=== PATIENT | male | born 1955 | race Caucasian/White ===

== ENCOUNTER 2020-04-20 17:06 | Outpatient (REF) | payer OTHER, SELFPAY ==
--- NOTE | 2020-04-20 17:11 | XR_ITS ---
EXAMINATION: XR HAND, LEFT CLINICAL INFORMATION: Pain in left hand COMPARISON: None TECHNIQUE: PA, lateral, and oblique views of the left hand. FINDINGS: The bones and soft tissues are normal aside from mild swelling of the fourth digit with compression by the patient's ring. No fracture. Alignment is anatomic. Joint spaces are maintained. No erosions or soft tissue calcifications. Vascular calcifications are present XR/XR hand LT min 3V IMPRESSION: No acute injury.
== END 2020-04-20 17:07 | disposition home or self-care (01) ==
LOC: HO.HMGCX 17:06
PROVIDERS: PCP Internal Medicine; Visit Provider Hospitalist
DX: M79.642 Pain in left hand (principal)
CPT/HCPCS: 73130

== ENCOUNTER 2021-04-14 11:49 | Inpatient (IN) | payer OTHER, SELFPAY ==
[2021-04-14] VITALS (8 sets, daily range): BP systolic 104–130; BP diastolic 71–78; PULSE 63–71; RESP 14–20; TEMP 36.4–36.8; O2SAT 92–94; BMI 29.0; BMI 31.0
--- NOTE | ~2021-04-14 | CT_ITS ---
EXAMINATION: CT HEAD WITHOUT CONTRAST CLINICAL INFORMATION: Altered mental status, hypoxia. COMPARISON: None TECHNIQUE: Contiguous axial imaging was performed from the skull base to vertex without intravenous administration of contrast. Additional 2-D coronal and sagittal reformatted images are generated on the CT workstation and uploaded to PACS. This CT examination was performed using dose optimization techniques as appropriate, variously including the following: *Automated exposure control *Adjustment of mA and/or kV according to patient size (this includes techniques or standardized protocols for targeted exams where dose is matched to indication/reason for exam; i.e. extremities or head) *Use of iterative reconstruction technique DLP: 1042 mGy-cm FINDINGS: Images are degraded by beam hardening artifact crossing the mid and posterior head likely from extensive dental work. There is no intracranial hemorrhage, hematoma, or extra-axial fluid collection. The ventricles are normal in size. There is no hydrocephalus, edema, or mass effect. The guthrie-white matter differentiation appears well preserved . There is no visible acute territorial infarct or mass lesion. The calvarium appears intact. There is no pneumocephalus or orbital emphysema. There is scattered mucosal thickening in the ethmoid air cell. Greater than thickening in the bilateral maxillary sinuses. No air-fluid levels sinuses or middle ears or mastoids. CT/CT head/brain wo con IMPRESSION: No acute intracranial abnormality.
--- NOTE | ~2021-04-14 | XR_ITS ---
EXAMINATION: XR CHEST CLINICAL INFORMATION: Covid positive. Pneumonia. COMPARISON: September 09, 2006 TECHNIQUE: AP upright view of the chest was obtained. FINDINGS: No confluent parenchymal disease identified. This small region of density seen at the left base likely related to atelectasis. No pneumothorax or pleural effusion. Heart normal size. No evidence of pulmonary edema. XR/XR chest 1V IMPRESSION: No significant acute parenchymal disease identified.
--- NOTE | ~2021-04-14 | CT_ITS ---
EXAMINATION: CT CHEST WITHOUT CONTRAST CLINICAL INFORMATION: Hypoxia COMPARISON: Chest x-ray of April 14, 2021 and September 09, 2006 TECHNIQUE: Multidetector volumetric CT imaging of the chest was done. Axial MIP volume rendering provided. Sagittal and coronal reformatted images were obtained. This CT examination was performed using dose optimization techniques as appropriate, variously including the following: *Automated exposure control *Adjustment of mA and/or kV according to patient size (this includes techniques or standardized protocols for targeted exams where dose is matched to indication/reason for exam; i.e. extremities or head) *Use of iterative reconstruction technique DLP: 1042 mGy-cm FINDINGS: LUNGS: There are bilateral regions of groundglass opacity present with a generalized peripheral pattern. There is some consolidation seen within the lower lobes bilaterally which may be related to atelectasis or pneumonia. Central airways are patent. No bronchiectasis. There is a calcified granulomas seen within the right lower lobe. MEDIASTINUM: The heart is upper limits of normal in size. Coronary artery calcification is seen. No pericardial effusion. There is prominence of the ascending thoracic aorta measuring up to 3.9 cm in diameter. No mediastinal or hilar lymphadenopathy is appreciated. PLEURA: There may be trace pleural effusions with no significant effusion identified. AXILLA: No axillary lymphadenopathy is appreciated. No internal mammary lymphadenopathy is seen. UPPER ABDOMEN: There is a small hiatal hernia present. Cholelithiasis is present without evidence of acute cholecystitis. OSSEOUS STRUCTURES: No suspicious destructive bony lesions identified. There is multilevel degenerative disc disease present. CT/CT chest wo con IMPRESSION: Diffuse groundglass opacity seen bilaterally predominantly in a peripheral pattern consistent with viral/atypical pneumonitis. Covid 19 can have this appearance. More confluent airspace disease within the lower lobes dependently bilaterally which may be related to atelectasis or pneumonitis.
--- NOTE | 2021-04-14 12:42 | ECG_ITS ---
Test Reason : WEAKNESS Blood Pressure : / mmHG Vent. Rate : 062 BPM Atrial Rate : 062 BPM P-R Int : 146 ms QRS Dur : 090 ms QT Int : 460 ms P-R-T Axes : 041 -14 -18 degrees QTc Int : 466 ms Normal sinus rhythm Normal ECG When compared with ECG of 09-SEP-2006 15:14, QT has lengthened Referred By: Rian Osullivan Electronically Signed By:SOCO PIKE MD
--- NOTE | 2021-04-14 12:42 | ED.GENADULT ---
HPI - General Adult General Chief complaint: General Medical Stated complaint: dehydrated confusion weakness Time Seen by Provider: 04/14/21 12:36 Related Data Previous Rx's Medication Instructions Recorded atorvastatin 40 mg tablet 40 mg PO DAILY #30 tab 11/10/20 hydrochlorothiazide 25 mg tablet 25 mg PO DAILY #30 tab 11/10/20 losartan 100 mg tablet 100 mg PO DAILY #30 tab 11/10/20 Allergies Allergy/AdvReac Type Severity Reaction Status Date / Time No Known Allergies Allergy Unknown Unverified 04/20/20 17:02 amlodipine AdvReac Unknown Edema Verified 04/20/20 17:02 [facility] Past Medical History Medical History (Updated 04/14/21 @ 23:54 by Macey Sanchez, SUSAN) CVA (cerebral vascular accident) HTN (hypertension) Neuropathy Surgical History (Updated 04/14/21 @ 23:54 by Macey Sanchez RN) Hx of tonsillectomy Social History Social History Household Members: Spouse Housing: House Do you presently have visiting nurse or other home services: No Patient Tobacco Use Status: Former Tobacco user Quit Date: Pt. reports smoking from [employer] until roughly 20 yrs ago Tobacco use type: Cigarette Years Smoked: Appx. 30 Smoked in Last 30 Days: No Use of substances other than those prescribed or required for medical reasons: No Currently Displaying Signs/Symptoms of Drug Intoxication Withdrawal: No Have you been hit, kicked, punched, or otherwise hurt by someone within the past year? If so, by whom?: No Do you feel safe in your current relationship?: No Is there a partner from a previous relationship who is making you feel unsafe now?: No Are you made to feel afraid or neglected: No Spiritual Healthcare Practices: Quaker- no restrictions with care Advance Directives: No Advance Directives Information Provided: Yes Do you have thoughts of harming others: None Do you have a plan to hurt others: No Plan Recently lost weight without trying: No How much weight loss: Not applicable Eating poorly because of decreased appetite: Yes Nutrition screen score: 1 Physical Exam Vital Signs: Vital Signs: Last Vital Signs Temp 98.7 F 04/15/21 08:00 Pulse 65 04/15/21 11:00 Resp 12 04/15/21 11:00 BP 105/71 04/15/21 11:00 Pulse Ox 89 L 04/15/21 11:00 BMI result Body Mass Index 29.0 Course Course Course Narrative: Patient brought to the ED for dehydration. patient recently admitted for at [facility] last week for covid, but than signed out AMA. Son concerned he has not been eating or drinking. patient is A0X3. negative nuero deficit. Rapid medical screening done. Medical Decision Making Lab Data Result diagrams: 04/15/21 05:19 04/15/21 05:19 Labs: Lab Results 04/14/21 04/14/21 04/14/21 Range/Units 14:20 14:20 14:20 WBC 8.2 (4.8-10.8) X10*3/uL RBC 4.77 (4.60-5.80) X10*6/uL Hgb 13.4 L (14.0-18.0) g/dl Hct 39.2 L (42.0-52.0) % MCV 82.2 (80.0-98.0) fL MCH 28.1 (27.0-33.0) pg MCHC 34.2 (31.0-36.0) g/dl RDW 11.0 (11.0-16.0) % Plt Count 92 L (160-400) X10*3/uL MPV 11.8 (9.4-12.4) fL Immature Gran % (Auto) 0.9 H (0.0-0.4) % Neut % (Auto) 91.6 H (45-73) % Lymph % (Auto) 4.1 L (20-40) % [place] % (Auto) 3.4 (2-11) % Eos % (Auto) 0.0 (0-4) % Baso % (Auto) 0.0 (0-2) % Lymph # (Auto) 0.3 L (1.2-4.9) X10*3/uL [place] # (Auto) 0.3 (0.1-1.2) X10*3/uL Eos # (Auto) 0.0 (0.0-0.4) X10*3/uL Baso # (Auto) 0.0 (0.0-0.2) X10*3/uL Abs Immat Gran (auto) 0.07 H (0.00-0.03) X10*3/uL Absolute Neuts (auto) 7.5 (2.0-8.3) x10*3/uL Absolute Nucleated RBC 0.000 (0.0-0.012) X10*3/uL Nucleated RBC % (auto) 0.0 (0.0-0.2) /100WBC Smear Tech's Comments VERIFIED Sodium 106 L* (135-145) mmol/L Potassium 3.5 (3.3-5.1) mmol/L Chloride 74 L (96-108) mmol/L Carbon Dioxide 23 (22-29) mmol/L Anion Gap 12 (12-20) BUN 13 (9-16) mg/dL Creatinine 0.74 (0.5-1.4) mg/dL Estim Creat Clear Calc 102.2 Estimated GFR > 60 Random Glucose 180 H (60-115) mg/dL Calcium 8.0 L (8.4-10.2) mg/dL Magnesium 1.8 (1.6-2.6) mg/dL Ferritin 971 H (20-250) ng/mL Total Bilirubin 1.4 H (0.0-1.0) mg/dL Direct Bilirubin 0.6 H (0.0-0.5) mg/dL AST 42 H (5-37) U/L ALT 32 (0-40) U/L Alkaline Phosphatase 78 (39-117) U/L Lactate Dehydrogenase 304 H (118-273) U/L Troponin I High Sens (<3.5-35.0) ng/L Total Protein 5.9 L (6.5-8.0) g/dL Albumin 3.2 L (3.5-5.0) g/dL Procalcitonin 0.05 ng/mL Urine Color Urine Appearance Urine pH (5.0-8.0) Ur Specific [place] (1.005-1.025) Urine Protein (NEG-TRACE) MG/DL Urine Glucose (UA) (NEG) MG/DL Urine Ketones (NEG) MG/DL Urine Blood (NEG) Urine Nitrite (NEG) Ur Leukocyte Esterase (NEG) Urine RBC (0) /HPF Urine WBC (0-4) /HPF Ur Squamous Epith Cells /LPF Urine Bacteria /LPF Urine Osmolality (373-1093) mosm/kg Ur Random Sodium mmol/L Ur Random Chloride mmol/L 04/14/21 04/14/21 04/14/21 Range/Units 14:20 16:21 16:22 WBC (4.8-10.8) X10*3/uL RBC (4.60-5.80) X10*6/uL Hgb (14.0-18.0) g/dl Hct (42.0-52.0) % MCV (80.0-98.0) fL MCH (27.0-33.0) pg MCHC (31.0-36.0) g/dl RDW (11.0-16.0) % Plt Count (160-400) X10*3/uL MPV (9.4-12.4) fL Immature Gran % (Auto) (0.0-0.4) % Neut % (Auto) (45-73) % Lymph % (Auto) (20-40) % [place] % (Auto) (2-11) % Eos % (Auto) (0-4) % Baso % (Auto) (0-2) % Lymph # (Auto) (1.2-4.9) X10*3/uL [place] # (Auto) (0.1-1.2) X10*3/uL Eos # (Auto) (0.0-0.4) X10*3/uL Baso # (Auto) (0.0-0.2) X10*3/uL Abs Immat Gran (auto) (0.00-0.03) X10*3/uL Absolute Neuts (auto) (2.0-8.3) x10*3/uL Absolute Nucleated RBC (0.0-0.012) X10*3/uL Nucleated RBC % (auto) (0.0-0.2) /100WBC Smear Tech's Comments Sodium (135-145) mmol/L Potassium (3.3-5.1) mmol/L Chloride (96-108) mmol/L Carbon Dioxide (22-29) mmol/L Anion Gap (12-20) BUN (9-16) mg/dL Creatinine (0.5-1.4) mg/dL Estim Creat Clear Calc Estimated GFR Random Glucose (60-115) mg/dL Calcium (8.4-10.2) mg/dL Magnesium (1.6-2.6) mg/dL Ferritin (20-250) ng/mL Total Bilirubin (0.0-1.0) mg/dL Direct Bilirubin (0.0-0.5) mg/dL AST (5-37) U/L ALT (0-40) U/L Alkaline Phosphatase (39-117) U/L Lactate Dehydrogenase (118-273) U/L Troponin I High Sens 7.2 (<3.5-35.0) ng/L Total Protein (6.5-8.0) g/dL Albumin (3.5-5.0) g/dL Procalcitonin ng/mL Urine Color YELLOW Urine Appearance CLEAR Urine pH 6.0 (5.0-8.0) Ur Specific [place] 1.025 (1.005-1.025) Urine Protein 2+ H (NEG-TRACE) MG/DL Urine Glucose (UA) NEG (NEG) MG/DL Urine Ketones 5 (NEG) MG/DL Urine Blood 1+ H (NEG) Urine Nitrite NEG (NEG) Ur Leukocyte Esterase NEG (NEG) Urine RBC 1-4 (0) /HPF Urine WBC 0 (0-4) /HPF Ur Squamous Epith Cells NONE /LPF Urine Bacteria 1+ /LPF Urine Osmolality 788 (373-1093) mosm/kg Ur Random Sodium mmol/L Ur Random Chloride mmol/L 04/14/21 Range/Units 16:22 WBC (4.8-10.8) X10*3/uL RBC (4.60-5.80) X10*6/uL Hgb (14.0-18.0) g/dl Hct (42.0-52.0) % MCV (80.0-98.0) fL MCH (27.0-33.0) pg MCHC (31.0-36.0) g/dl RDW (11.0-16.0) % Plt Count (160-400) X10*3/uL MPV (9.4-12.4) fL Immature Gran % (Auto) (0.0-0.4) % Neut % (Auto) (45-73) % Lymph % (Auto) (20-40) % [place] % (Auto) (2-11) % Eos % (Auto) (0-4) % Baso % (Auto) (0-2) % Lymph # (Auto) (1.2-4.9) X10*3/uL [place] # (Auto) (0.1-1.2) X10*3/uL Eos # (Auto) (0.0-0.4) X10*3/uL Baso # (Auto) (0.0-0.2) X10*3/uL Abs Immat Gran (auto) (0.00-0.03) X10*3/uL Absolute Neuts (auto) (2.0-8.3) x10*3/uL Absolute Nucleated RBC (0.0-0.012) X10*3/uL Nucleated RBC % (auto) (0.0-0.2) /100WBC Smear Tech's Comments Sodium (135-145) mmol/L Potassium (3.3-5.1) mmol/L Chloride (96-108) mmol/L Carbon Dioxide (22-29) mmol/L Anion Gap (12-20) BUN (9-16) mg/dL Creatinine (0.5-1.4) mg/dL Estim Creat Clear Calc Estimated GFR Random Glucose (60-115) mg/dL Calcium (8.4-10.2) mg/dL Magnesium (1.6-2.6) mg/dL Ferritin (20-250) ng/mL Total Bilirubin (0.0-1.0) mg/dL Direct Bilirubin (0.0-0.5) mg/dL AST (5-37) U/L ALT (0-40) U/L Alkaline Phosphatase (39-117) U/L Lactate Dehydrogenase (118-273) U/L Troponin I High Sens (<3.5-35.0) ng/L Total Protein (6.5-8.0) g/dL Albumin (3.5-5.0) g/dL Procalcitonin ng/mL Urine Color Urine Appearance Urine pH (5.0-8.0) Ur Specific [place] (1.005-1.025) Urine Protein (NEG-TRACE) MG/DL Urine Glucose (UA) (NEG) MG/DL Urine Ketones (NEG) MG/DL Urine Blood (NEG) Urine Nitrite (NEG) Ur Leukocyte Esterase (NEG) Urine RBC (0) /HPF Urine WBC (0-4) /HPF Ur Squamous Epith Cells /LPF Urine Bacteria /LPF Urine Osmolality (373-1093) mosm/kg Ur Random Sodium < 20.0 mmol/L Ur Random Chloride 39.0 mmol/L Discharge Plan Discharge Clinical Impression: Acute hyponatremia Patient Disposition: Admitted As Inpatient Interventions: Admission Worksheet (ED) Last Done: 04/14/21 22:03 Discharge Date/Time: 04/14/21 22:03
[2021-04-14 14:45] LABS: Mean Platelet Volume 11.8 fL (9.4-12.4); PLT CLUMP 1
[2021-04-14 14:47] LABS: Hematocrit 39.2 % (42.0-52.0); Imm Gran Abs Auto 0.07 X10*3/uL (0.00-0.03); Imm Gran Pct Auto 0.9 % (0.0-0.4); Lymphocytes Absolute Auto 0.3 X10*3/uL (1.2-4.9); Lymphocytes Percent Auto 4.1 % (20-40); MANUAL DIFF FLAG SCAN; Mean Corpuscular Volume 82.2 fL (80.0-98.0); Monocytes Absolute Auto 0.3 X10*3/uL (0.1-1.2); Monocytes Percent Auto 3.4 % (2-11); Neutrophils Absolute Auto 7.5 x10*3/uL (2.0-8.3); Neutrophils Percent Auto 91.6 % (45-73); Red Blood Count 4.77 X10*6/uL (4.60-5.80); SCAN SMEAR FLAG 1
[2021-04-14 14:48] LABS: Troponin-I High Sensitivity 7.2 ng/L (<3.5-35.0)
[2021-04-14 14:55] LABS: Alanine Aminotransferase 32 U/L (0-40); Albumin Level 3.2 g/dL (3.5-5.0); Alkaline Phosphatase 78 U/L (39-117); Anion Gap 12 (12-20); Aspartate Amino Transferase 42 U/L (5-37); Bilirubin Direct 0.6 mg/dL (0.0-0.5); Bilirubin Total 1.4 mg/dL (0.0-1.0); Blood Urea Nitrogen 13 mg/dL (9-16); Carbon Dioxide 23 mmol/L (22-29); Chloride 74 mmol/L (96-108); Creatinine Clr Calc Pharmacy 102.2; Estimated Glomerular Filt Rate > 60; Glucose Random 180 mg/dL (60-115); Lactate Dehydrogenase 304 U/L (118-273); Magnesium 1.8 mg/dL (1.6-2.6); Potassium 3.5 mmol/L (3.3-5.1); Sodium 106 mmol/L (135-145); Total Protein 5.9 g/dL (6.5-8.0)
[2021-04-14 15:01] LABS: Hemoglobin 13.4 g/dl (14.0-18.0); White Blood Count 8.2 X10*3/uL (4.8-10.8)
[2021-04-14 15:02] LABS: Mean Corpuscular Hemoglobin 28.1 pg (27.0-33.0); Procalcitonin 0.05 ng/mL
[2021-04-14 15:03] LABS: Ferritin 971 ng/mL (20-250); Mean Corpuscular HGB Conc 34.2 g/dl (31.0-36.0); Platelet Count 92 X10*3/uL (160-400)
[2021-04-14 15:09] LABS: SLIDE REVIEW VERIFIED
--- NOTE | 2021-04-14 15:35 | ED_ITS ---
HPI - General Adult General Chief complaint: General Medical Stated complaint: dehydrated confusion weakness Time Seen by Provider: 04/14/21 12:36 Source: patient Mode of arrival: ambulatory Limitations: no limitations History of Present Illness HPI narrative: 66-year-old male came in for evaluation of generalized weakness and failure to thrive for the past 2 weeks. This is a 66-year-old male has a history of ischemic stroke 2017 with no significant neurological deficit, patient recently was admitted to [facility] for positive COVID infection and patient had periods of spacing out witnessed by his (patient is a limited historian who will try to request records from [facility] to get further history), patient stated for the last 2 weeks with decreased appetite and oral intake, reportedly patient has been urinating normally. Patient otherwise has no headache, no neck pain, no blurry vision, no chest pain, no abdominal pain, no gaining weight or losing weight, no edema or swelling. Patient found to be severely hyponatremic hypochloremic on random blood workup. Related Data Previous Rx's Medication Instructions Recorded atorvastatin 40 mg tablet 40 mg PO DAILY #30 tab 11/10/20 hydrochlorothiazide 25 mg tablet 25 mg PO DAILY #30 tab 11/10/20 losartan 100 mg tablet 100 mg PO DAILY #30 tab 11/10/20 Allergies Allergy/AdvReac Type Severity Reaction Status Date / Time No Known Allergies Allergy Unknown Unverified 04/20/20 17:02 amlodipine AdvReac Unknown Edema Verified 04/20/20 17:02 Review of Systems Review of Systems: All other systems are reviewed and are negative Constitutional: Reports as per HPI and Reports no additional constitutional complaints Eyes: Reports as per HPI and Reports no additional eye complaints Reports system reviewed and no additional complaints, except as documented Cardiovascular: Reports as per HPI and Reports no additional cardiovascular complaints Respiratory: Reports as per HPI and Reports no additional respiratory complaints Gastrointestinal: Reports as per HPI and Reports no additional gastrointestinal complaints Genitourinary: Reports no additional female genitourinary complaints Musculoskeletal: Reports no additional musculoskeletal complaints Skin/Breast: Reports system reviewed and no additional complaints, except as docu Psychiatric: Reports no additional psychiatric complaints Endocrine: Reports no additional endocrine complaints Hematologic/Lymphatic: Reports no additional hematologic/lymphatic complaints Allergic/Immunologic: Reports no additional allergic/immunologic complaints Reports system reviewed and no additional complaints, except as documented and Reports Abnormal speech present [facility] Social History Social History Advance Directives: No Advance Directives Information Provided: Yes Physical Exam Vital Signs: Vital Signs: Last Vital Signs Temp 97.8 F 04/14/21 12:37 Pulse 70 04/14/21 15:32 Resp 18 04/14/21 12:37 BP 126/72 04/14/21 15:32 Pulse Ox 93 04/14/21 12:37 BMI result Body Mass Index 29.0 Vital signs have been reviewed as appeared to be correct. Blood pressure normal. Heart rate normal. Respiration rate normal. Temperature normal. Oxygen saturation normal. Appearance: Alert. Oriented X3. No acute distress. Head: Normal external exam. Normocephalic. Atraumatic. No [place] signs noted. No raccoon eyes noted Eyes: PERRLA. EOMI. Conjunctiva and sclera normal. Eyelids normal. ENT: TM's Normal. Pharynx normal. Uvula midline. Moist mucous membranes. No trismus noted. No drooling noted. No muffled voice noted. Neck: Normal inspection. Neck supple. FROM. No adenopathy. Thyroid Normal. No meningeal signs. No neck mass noted. CVS: Normal heart rate and rhythm. Heart sound normal. No murmurs noted. Pulses normal throughout. Respiratory: No respiratory distress. Painless inspiration. Breath sounds normal. No wheezes/rales/rhonchi noted. Chest nontender. No accessory muscle usage noted or decreased air movement noted. Abdomen: Soft and nontender. Bowel sounds normal in all 4 quadrants. No distention noted. No organomegaly noted. No visible injury noted. Back: No CVA tenderness. Full range of motion noted. Skin: Skin warm and dry. Normal skin color. Normal skin turgor. No rashes/ lesions/lacerations noted. Extremities: No lower extremity edema. Extremities exhibit normal range of motion. Extremities nontender. Neuro: Oriented X 3. Cranial nerve exam: II-XII are grossly intact No motor deficit. No sensory deficit. Reflexes normal. Course Course Course Narrative: Assessment and plan. 66-year-old male came in with severe hyponatremia/hypochloremia patient do not appear hypo or hypervolemic. Patient has a recent admission to [facility] was still awaiting for the records and patient could not provide enough history. No neurological symptoms. Reevaluation(s) Reevaluation #1: Case discussed with Dr. Tres Frye from Nephrology Service, recommendation is to start the patient on hypertonic 3% saline, start at 10 cc/hour with 2 hourly sodium check, serum sodium should not exceed more than 112 by tomorrow morning, if the patient show rapid correction DC hypertonic saline instantly. Time: 16:17 Reevaluation #2: Case discussed with Dr. Tovar, the business analyst ecommerce plan was discussed with Dr. Tovar and accepted the patient to ICU. Still awaiting for records from [facility]. Time: 16:18 Medical Decision Making Lab Data Lab results reviewed: Yes I reviewed the patient's lab results. Result diagrams: 04/14/21 14:20 04/14/21 14:20 Labs: Lab Results 04/14/21 04/14/21 04/14/21 Range/Units 14:20 14:20 14:20 WBC 8.2 (4.8-10.8) X10*3/uL RBC 4.77 (4.60-5.80) X10*6/uL Hgb 13.4 L (14.0-18.0) g/dl Hct 39.2 L (42.0-52.0) % MCV 82.2 (80.0-98.0) fL MCH 28.1 (27.0-33.0) pg MCHC 34.2 (31.0-36.0) g/dl RDW 11.0 (11.0-16.0) % Plt Count 92 L (160-400) X10*3/uL MPV 11.8 (9.4-12.4) fL Immature Gran % (Auto) 0.9 H (0.0-0.4) % Neut % (Auto) 91.6 H (45-73) % Lymph % (Auto) 4.1 L (20-40) % [place] % (Auto) 3.4 (2-11) % Eos % (Auto) 0.0 (0-4) % Baso % (Auto) 0.0 (0-2) % Lymph # (Auto) 0.3 L (1.2-4.9) X10*3/uL [place] # (Auto) 0.3 (0.1-1.2) X10*3/uL Eos # (Auto) 0.0 (0.0-0.4) X10*3/uL Baso # (Auto) 0.0 (0.0-0.2) X10*3/uL Abs Immat Gran (auto) 0.07 H (0.00-0.03) X10*3/uL Absolute Neuts (auto) 7.5 (2.0-8.3) x10*3/uL Absolute Nucleated RBC 0.000 (0.0-0.012) X10*3/uL Nucleated RBC % (auto) 0.0 (0.0-0.2) /100WBC Smear Tech's Comments VERIFIED Sodium 106 L* (135-145) mmol/L Potassium 3.5 (3.3-5.1) mmol/L Chloride 74 L (96-108) mmol/L Carbon Dioxide 23 (22-29) mmol/L Anion Gap 12 (12-20) BUN 13 (9-16) mg/dL Creatinine 0.74 (0.5-1.4) mg/dL Estim Creat Clear Calc 102.2 Estimated GFR > 60 Random Glucose 180 H (60-115) mg/dL Calcium 8.0 L (8.4-10.2) mg/dL Magnesium 1.8 (1.6-2.6) mg/dL Ferritin 971 H (20-250) ng/mL Total Bilirubin 1.4 H (0.0-1.0) mg/dL Direct Bilirubin 0.6 H (0.0-0.5) mg/dL AST 42 H (5-37) U/L ALT 32 (0-40) U/L Alkaline Phosphatase 78 (39-117) U/L Lactate Dehydrogenase 304 H (118-273) U/L Troponin I High Sens (<3.5-35.0) ng/L Total Protein 5.9 L (6.5-8.0) g/dL Albumin 3.2 L (3.5-5.0) g/dL Procalcitonin 0.05 ng/mL 04/14/21 Range/Units 14:20 WBC (4.8-10.8) X10*3/uL RBC (4.60-5.80) X10*6/uL Hgb (14.0-18.0) g/dl Hct (42.0-52.0) % MCV (80.0-98.0) fL MCH (27.0-33.0) pg MCHC (31.0-36.0) g/dl RDW (11.0-16.0) % Plt Count (160-400) X10*3/uL MPV (9.4-12.4) fL Immature Gran % (Auto) (0.0-0.4) % Neut % (Auto) (45-73) % Lymph % (Auto) (20-40) % [place] % (Auto) (2-11) % Eos % (Auto) (0-4) % Baso % (Auto) (0-2) % Lymph # (Auto) (1.2-4.9) X10*3/uL [place] # (Auto) (0.1-1.2) X10*3/uL Eos # (Auto) (0.0-0.4) X10*3/uL Baso # (Auto) (0.0-0.2) X10*3/uL Abs Immat Gran (auto) (0.00-0.03) X10*3/uL Absolute Neuts (auto) (2.0-8.3) x10*3/uL Absolute Nucleated RBC (0.0-0.012) X10*3/uL Nucleated RBC % (auto) (0.0-0.2) /100WBC Smear Tech's Comments Sodium (135-145) mmol/L Potassium (3.3-5.1) mmol/L Chloride (96-108) mmol/L Carbon Dioxide (22-29) mmol/L Anion Gap (12-20) BUN (9-16) mg/dL Creatinine (0.5-1.4) mg/dL Estim Creat Clear Calc Estimated GFR Random Glucose (60-115) mg/dL Calcium (8.4-10.2) mg/dL Magnesium (1.6-2.6) mg/dL Ferritin (20-250) ng/mL Total Bilirubin (0.0-1.0) mg/dL Direct Bilirubin (0.0-0.5) mg/dL AST (5-37) U/L ALT (0-40) U/L Alkaline Phosphatase (39-117) U/L Lactate Dehydrogenase (118-273) U/L Troponin I High Sens 7.2 (<3.5-35.0) ng/L Total Protein (6.5-8.0) g/dL Albumin (3.5-5.0) g/dL Procalcitonin ng/mL Imaging Data Chest x-ray: Attestation: I personally reviewed and interpreted this imaging study as follows: Radiologist's impression: No significant acute parenchymal disease identified. ECG Data Attestation: I personally reviewed and interpreted this ECG as follows: Interpretation: Normal sinus rhythm at 62 beats per minutes, normal intervals, no ST-T changes. Critical Care Time Critical Care Time Critical Care Time: Yes Total Critical Care Time: 60 Attestation: I spent 60 minutes providing critical care service to the patient, this including time spent at the bedside to evaluate the patient, reassess the patient, monitoring vital signs, review labs, and radiographic studies, counseling the patient/family, discussing the case with consultants, disposition the patient. Discharge Plan Discharge Clinical Impression: Acute hyponatremia Patient Disposition: Admitted As Inpatient Prescriptions: No Action atorvastatin 40 mg tablet 40 mg PO DAILY Qty: 30 RF: 0 hydrochlorothiazide 25 mg tablet 25 mg PO DAILY Qty: 30 RF: 0 losartan 100 mg tablet 100 mg PO DAILY Qty: 30 RF: 0
--- NOTE | 2021-04-14 15:38 | PC.NURSE ---
call out to renal, dr smith [address] collections officer
--- NOTE | 2021-04-14 16:20 | PC.NURSE ---
THIS RN SPOKE W/PTS SON WHO IS HEALTH CARE [employer]OXY AND VEYR CONCERNED/UPSET RE: NOT BEING ABLE TO BE AT DADS BEDSIDE D/T COVID +STATUS. PTS SON HAS REQUESTED BEFORE ANY MEDS ARE GIVEN TO HIS FTAHER IT IS DISCUSSED W/HIM FIRST. THIS WILL BE CONVEYED IN NURSE TO NURSE REPORT BUT I DID ALSO ENCOURAGE JOSE F TO [place];; AND CHECK IN WITH THE NURSING STAFF REGULARLY
[2021-04-14 16:39] LABS: Appearance Urine CLEAR; Color Urine YELLOW; Glucose Urine UA NEG (NEG); Leukocyte Esterase Urine NEG (NEG); Nitrite Urine NEG (NEG); Specific Gravity - Urine 1.025 (1.005-1.025); UACC Culture Trigger NO; Urine Blood 1+ (NEG); Urine Ketones 5 MG/DL (NEG); Urine Protein 2+ MG/DL (NEG-TRACE)
[2021-04-14 16:50] LABS: Sodium Urine Random < 20.0 mmol/L
[2021-04-14 16:56] LABS: Bacteria Urine 1+ /LPF; WBC Urine 0 /HPF (0-4)
[2021-04-14 17:00] LABS: Osmolality Urine 788 mosm/kg (373-1093)
--- NOTE | 2021-04-14 17:29 | PM.CCHP ---
History of Present Illness Date of Service: 04/14/21 Attending physician on admission: Vashti Tovar Chief Complaint: Altered mental status 66-year-old hypertensive on hydrochlorothiazide and losartan who had a diagnosis of COVID-19 made 5 days ago but apparently symptomatic for approximately 2 weeks according to his son was briefly admitted but signed out of [facility] and and comes in now because of this altered mental status superimposed on a background of a per and old CVA that did not leave him with any residual and apparently he is a healthy walker 5 miles per day with no residual deficit but the because of altered mental status son brought him in and we noted a sodium of 106 with no apparent or at least witnessed loss of consciousness fall head trauma seizure activity etc. At this point he is approximately 2 weeks out from the initial symptom of of COVID and 5 days out from the positive PCR test and has no complaints of dyspnea cough fever yet at this point Review of Systems Review of Systems: Yes all other systems are reviewed and are negative PMFSH Past Medical History Medical History (Updated 04/15/21 @ 16:25 by Vashti Tovar MD) CVA (cerebral vascular accident) HTN (hypertension) Hypertensive arteriosclerotic cardiovascular disease Neuropathy Surgical History Surgical History Hx of tonsillectomy Social History Social History Household Members: Spouse Housing: House Do you presently have visiting nurse or other home services: No Patient Tobacco Use Status: Former Tobacco user Quit Date: Pt. reports smoking from [employer] school until roughly 20 yrs ago Tobacco use type: Cigarette Years Smoked: Appx. 30 Smoked in Last 30 Days: No Use of substances other than those prescribed or required for medical reasons: No Currently Displaying Signs/Symptoms of Drug Intoxication Withdrawal: No Have you been hit, kicked, punched, or otherwise hurt by someone within the past year? If so, by whom?: No Do you feel safe in your current relationship?: No Is there a partner from a previous relationship who is making you feel unsafe now?: No Are you made to feel afraid or neglected: No Spiritual Healthcare Practices: [facility]- no restrictions with care Advance Directives: No Advance Directives Information Provided: Yes Do you have thoughts of harming others: None Do you have a plan to hurt others: No Plan Recently lost weight without trying: No How much weight loss: Not applicable Eating poorly because of decreased appetite: Yes Nutrition screen score: 1 service: No Meds Allergies Allergy/AdvReac Type Severity Reaction Status Date / Time No Known Allergies Allergy Unknown Unverified 04/20/20 17:02 amlodipine AdvReac Unknown Edema Verified 04/20/20 17:02 Active Medications: Current Medications Sodium Chloride 30 ml/ IV (Miscellaneous Supplies) 30 mls @ 10 mls/hr IV ONCE ONE Stop: 04/14/21 19:14 Dextrose/Sodium Chloride (D5ns) 1,000 mls @ 100 mls/hr IVCONT .Q10H EFREN Sodium Chloride (0.9 % Sodium Chloride Flush 3 Ml Syringe) 3 ml IVFLUSH QSHIFT EFREN Physical Exam Vital Signs: Vital Signs: Last Vital Signs Temp 97.8 F 04/14/21 12:37 Pulse 70 04/14/21 15:32 Resp 18 04/14/21 12:37 BP 126/72 04/14/21 15:32 Pulse Ox 93 04/14/21 12:37 BMI result Body Mass Index 29.0 Not awake and conversational but clearly this cloudiness Nonfocal neurologically and oxygen saturation on room air 92% with no respiratory effort and no adventitious sounds Cardiac exam but with bedside echo shows globally normal systolic wall motion of the left ventricle normal right ventricle and no primary valve or pericardial disease Skin intact despite some peripheral edema but neck veins are flat but carotid upstrokes are adequate and inferior vena caval diameter is small implying that there is relative hypovolemia so at this point we await the urine sodium as well as the BNP and the urine osmolality to determine etiology as to whether not this is a hypo volemic hyponatremia and hypo osmolal and whether not the fold lies with combination of the hydrochlorothiazide and very poor p.o. intake these last few days whether this is an inappropriate ADH simply Results Labs CBC and Chem 7: 04/15/21 05:19 04/15/21 10:47 Labs: Laboratory Results - last 24 hr 04/14/21 04/14/21 04/14/21 14:20 14:20 14:20 MCV 82.2 MCH 28.1 MCHC 34.2 RDW 11.0 Plt Count 92 L MPV 11.8 Immature Gran % (Auto) 0.9 H Neut % (Auto) 91.6 H Lymph % (Auto) 4.1 L [place] % (Auto) 3.4 Eos % (Auto) 0.0 Baso % (Auto) 0.0 Lymph # (Auto) 0.3 L [place] # (Auto) 0.3 Eos # (Auto) 0.0 Baso # (Auto) 0.0 Abs Immat Gran (auto) 0.07 H Absolute Neuts (auto) 7.5 Absolute Nucleated RBC 0.000 Nucleated RBC % (auto) 0.0 Smear Tech's Comments VERIFIED Anion Gap 12 Estim Creat Clear Calc 102.2 Estimated GFR > 60 Random Glucose 180 H Calcium 8.0 L Magnesium 1.8 Ferritin 971 H Total Bilirubin 1.4 H Direct Bilirubin 0.6 H AST 42 H ALT 32 Alkaline Phosphatase 78 Lactate Dehydrogenase 304 H Troponin I High Sens Total Protein 5.9 L Albumin 3.2 L Procalcitonin 0.05 Urine Color Urine Appearance Urine pH Ur Specific [place] Urine Protein Urine Glucose (UA) Urine Ketones Urine Blood Urine Nitrite Ur Leukocyte Esterase Urine RBC Urine WBC Ur Squamous Epith Cells Urine Bacteria Urine Osmolality Ur Random Sodium Ur Random Chloride 04/14/21 04/14/21 04/14/21 14:20 16:21 16:22 MCV MCH MCHC RDW Plt Count MPV Immature Gran % (Auto) Neut % (Auto) Lymph % (Auto) [place] % (Auto) Eos % (Auto) Baso % (Auto) Lymph # (Auto) [place] # (Auto) Eos # (Auto) Baso # (Auto) Abs Immat Gran (auto) Absolute Neuts (auto) Absolute Nucleated RBC Nucleated RBC % (auto) Smear Tech's Comments Anion Gap Estim Creat Clear Calc Estimated GFR Random Glucose Calcium Magnesium Ferritin Total Bilirubin Direct Bilirubin AST ALT Alkaline Phosphatase Lactate Dehydrogenase Troponin I High Sens 7.2 Total Protein Albumin Procalcitonin Urine Color YELLOW Urine Appearance CLEAR Urine pH 6.0 Ur Specific [place] 1.025 Urine Protein 2+ H Urine Glucose (UA) NEG Urine Ketones 5 Urine Blood 1+ H Urine Nitrite NEG Ur Leukocyte Esterase NEG Urine RBC 1-4 Urine WBC 0 Ur Squamous Epith Cells NONE Urine Bacteria 1+ Urine Osmolality 788 Ur Random Sodium Ur Random Chloride 04/14/21 16:22 MCV MCH MCHC RDW Plt Count MPV Immature Gran % (Auto) Neut % (Auto) Lymph % (Auto) [place] % (Auto) Eos % (Auto) Baso % (Auto) Lymph # (Auto) [place] # (Auto) Eos # (Auto) Baso # (Auto) Abs Immat Gran (auto) Absolute Neuts (auto) Absolute Nucleated RBC Nucleated RBC % (auto) Smear Tech's Comments Anion Gap Estim Creat Clear Calc Estimated GFR Random Glucose Calcium Magnesium Ferritin Total Bilirubin Direct Bilirubin AST ALT Alkaline Phosphatase Lactate Dehydrogenase Troponin I High Sens Total Protein Albumin Procalcitonin Urine Color Urine Appearance Urine pH Ur Specific [place] Urine Protein Urine Glucose (UA) Urine Ketones Urine Blood Urine Nitrite Ur Leukocyte Esterase Urine RBC Urine WBC Ur Squamous Epith Cells Urine Bacteria Urine Osmolality Ur Random Sodium < 20.0 Ur Random Chloride 39.0 Imaging Radiologist's Impressions: Impressions Chest X-Ray 04/14/21 13:33 IMPRESSION: No significant acute parenchymal disease identified. Assessment and Plan (1) Acute hyponatremia: Status: Acute (2) Acute metabolic encephalopathy: Status: Acute (3) COVID-19 determined by clinical diagnostic criteria: Status: Acute (4) Hypertensive arteriosclerotic cardiovascular disease: Status: Acute Will admit to the ICU and give him a total of 30 cc of 3% saline over 3 hours and then switch over to normal saline at 100 cc/hour monitoring every 2 hours the serum sodium and potassium and await the urine studies in a for final definition but just tract that were in the right direction and follow his oxygen saturation and if that becomes an issue with any may need a chest CT scan and increasing oxygen support and then potentially at this point in time from his initial symptom we might yet be able to give him Decadron as well as baricitinib
[2021-04-14 17:56] LABS: Adenovirus PCR Not Detected (Not Detect.); Bordetella parapertussis PCR Not Detected (Not Detect.); Bordetella pertussis PCR Not Detected (Not Detect.); Chlamydia pneumoniae PCR Not Detected (Not Detect.); Coronavirus 229E PCR Not Detected (Not Detect.); Coronavirus HKU1 PCR Not Detected (Not Detect.); Coronavirus NL63 PCR Not Detected (Not Detect.); Coronavirus OC43 PCR Not Detected (Not Detect.); Human metapneumovirus PCR Not Detected (Not Detect.); Influenza A PCR Not Detected (Not Detect.); Influenza B PCR Not Detected (Not Detect.); Mycoplasma pneumoniae PCR Not Detected (Not Detect.); Parainfluenza 1 PCR Not Detected (Not Detect.); Parainfluenza 2 PCR Not Detected (Not Detect.); Parainfluenza 3 PCR Not Detected (Not Detect.); Parainfluenza 4 PCR Not Detected (Not Detect.); RSV PCR Not Detected (Not Detect.); Rhino/Enterovirus PCR Not Detected (Not Detect.)
[2021-04-14 18:11] LABS: COVID-19 Test Positive (Negative)
[2021-04-14 18:17] LABS: B Type Natriuretic Peptide 87 pg/mL (<100)
[2021-04-14 18:19] LABS: C Reactive Protein 1.28 mg/dL (< or = 0.50); Phosphorus 2.3 mg/dL (2.7-4.5)
[2021-04-14 18:23] LABS: D Dimer High Sensitivity 282 NG/ML
[2021-04-14 18:32] LABS: TSH reflex Free T4 0.59 uIU/mL (0.32-4.0)
[2021-04-14] MEDS: Dextrose 5 % and 0.9 % NaCl 1,000 ML 100 ML IVCONT (19:56)
[2021-04-14 20:47] LABS: Anion Gap 11 (12-20); Blood Urea Nitrogen 12 mg/dL (9-16); Calcium 7.7 mg/dL (8.4-10.2); Carbon Dioxide 24 mmol/L (22-29); Chloride 76 mmol/L (96-108); Creatinine Clr Calc Pharmacy 109.7; Estimated Glomerular Filt Rate > 60; Glucose Random 164 mg/dL (60-115); Potassium 3.2 mmol/L (3.3-5.1); Sodium 108 mmol/L (135-145)
[2021-04-14] MEDS: 0.9 % Sodium Chloride 1,000 ML 100 ML IVCONT (22:47)
[2021-04-14 22:50] LABS: Anion Gap 10 (12-20); Blood Urea Nitrogen 12 mg/dL (9-16); Calcium 7.7 mg/dL (8.4-10.2); Carbon Dioxide 25 mmol/L (22-29); Chloride 77 mmol/L (96-108); Creatinine Clr Calc Pharmacy 116.5; Estimated Glomerular Filt Rate > 60; Glucose Fasting 129 mg/dL (60-99); Potassium 3.3 mmol/L (3.3-5.1); Sodium 109 mmol/L (135-145)
[2021-04-14] MEDS: Potassium Phosphate 30 MMOL in 0.9 % Sodium Chloride 500 ML 85 MMOL IV (23:04)
[2021-04-14] MEDS: Famotidine/PF 20 MG/2 ML VIAL IVPUSH (23:04)
[2021-04-15] VITALS (27 sets, daily range): BP systolic 91–153; BP diastolic 53–76; PULSE 51–100; RESP 12–40; TEMP 36–37.1; O2SAT 88–94; BMI 31.0
[2021-04-15 01:14] LABS: Anion Gap 11 (12-20); Blood Urea Nitrogen 12 mg/dL (9-16); Calcium 7.6 mg/dL (8.4-10.2); Carbon Dioxide 25 mmol/L (22-29); Chloride 77 mmol/L (96-108); Creatinine Clr Calc Pharmacy 118.3; Estimated Glomerular Filt Rate > 60; Glucose Fasting 117 mg/dL (60-99); Potassium 3.3 mmol/L (3.3-5.1); Sodium 110 mmol/L (135-145)
[2021-04-15 02:59] LABS: Anion Gap 11 (12-20); Blood Urea Nitrogen 11 mg/dL (9-16); Calcium 7.4 mg/dL (8.4-10.2); Carbon Dioxide 24 mmol/L (22-29); Chloride 79 mmol/L (96-108); Creatinine Clr Calc Pharmacy 120.1; Estimated Glomerular Filt Rate > 60; Glucose Fasting 103 mg/dL (60-99); Potassium 3.4 mmol/L (3.3-5.1); Sodium 111 mmol/L (135-145)
[2021-04-15] MEDS: Metoclopramide HCl 10 MG/2 ML VIAL 5 MG IVPUSH (04:08)
[2021-04-15 05:37] LABS: PLT CLUMP 1; SCAN SMEAR FLAG 1
[2021-04-15 05:39] LABS: Basophils Percent Auto 0.1 % (0-2); Hematocrit 34.6 % (42.0-52.0); Hemoglobin 13.1 g/dl (14.0-18.0); Imm Gran Abs Auto 0.06 X10*3/uL (0.00-0.03); Imm Gran Pct Auto 0.7 % (0.0-0.4); Lymphocytes Absolute Auto 0.6 X10*3/uL (1.2-4.9); Lymphocytes Percent Auto 6.7 % (20-40); Mean Corpuscular Hemoglobin 31.4 pg (27.0-33.0); Mean Platelet Volume 11.5 fL (9.4-12.4); Monocytes Absolute Auto 0.3 X10*3/uL (0.1-1.2); Monocytes Percent Auto 3.4 % (2-11); Neutrophils Absolute Auto 7.8 x10*3/uL (2.0-8.3); Neutrophils Percent Auto 89.1 % (45-73); Red Blood Count 4.17 X10*6/uL (4.60-5.80); Red Cell Distribution Width 10.9 % (11.0-16.0)
[2021-04-15 06:01] LABS: Anion Gap 11 (12-20); Blood Urea Nitrogen 11 mg/dL (9-16); Calcium 7.2 mg/dL (8.4-10.2); Carbon Dioxide 25 mmol/L (22-29); Chloride 81 mmol/L (96-108); Creatinine Clr Calc Pharmacy 118.3; Estimated Glomerular Filt Rate > 60; Glucose Fasting 90 mg/dL (60-99); Magnesium 1.7 mg/dL (1.6-2.6); Phosphorus 4.6 mg/dL (2.7-4.5); Potassium 4.1 mmol/L (3.3-5.1); Sodium 113 mmol/L (135-145)
[2021-04-15 06:09] LABS: Mean Corpuscular HGB Conc 37.9 g/dl (31.0-36.0); White Blood Count 8.8 X10*3/uL (4.8-10.8)
[2021-04-15 06:10] LABS: Platelet Count 74 X10*3/uL (160-400)
[2021-04-15 06:11] LABS: MANUAL DIFF FLAG NO
[2021-04-15 06:18] LABS: Ferritin 856 ng/mL (20-250)
[2021-04-15] MEDS: 0.9 % Sodium Chloride 1,000 ML 80 ML IVCONT (09:00)
[2021-04-15] MEDS: 0.9 % Sodium Chloride 1,000 ML 100 ML IVCONT (09:01)
[2021-04-15] MEDS: Famotidine/PF 20 MG/2 ML VIAL IVPUSH ×2 (09:02→19:27)
[2021-04-15] MEDS: 0.9 % Sodium Chloride Flush 3 ML SYRINGE IVFLUSH ×2 (09:02→19:27)
[2021-04-15 10:51] LABS: SARS-CoV-2 PCR Detected (Not Detect.)
[2021-04-15] MEDS: dexAMETHasone sod phosphate 4 MG/ML VIAL 6 MG IVPUSH (11:23)
[2021-04-15 11:27] LABS: Anion Gap 9 (12-20); Blood Urea Nitrogen 11 mg/dL (9-16); Calcium 7.7 mg/dL (8.4-10.2); Carbon Dioxide 26 mmol/L (22-29); Chloride 84 mmol/L (96-108); Creatinine Clr Calc Pharmacy 116.5; Estimated Glomerular Filt Rate > 60; Glucose Random 87 mg/dL (60-115); Potassium 3.4 mmol/L (3.3-5.1); Sodium 116 mmol/L (135-145)
--- NOTE | 2021-04-15 11:48 | P.CONNP_ITS ---
History of Present Illness Reason for Consult Consult date: 04/15/21 Chief Complaint Chief complaint: Hyponatremia History of Present Illness Narrative: 66-year-old who had a diagnosis of COVID-19 for close to a week. Apparently symptomatic for approximately 2 weeks according to his son was briefly admitted but signed out of [facility] and and comes in now because of this altered mental status . Has H/O hypertension and had been on HCTZ and losartan. He was brought into hospital with altered mental status and was noted to have a sodium of 106 . He was admitted to ICU for further care. nephrology has been consulted to assist in his clinical care during his current hospital stay Review of Systems Review of Systems Yes Unobtainable due to mental status PMFSH Past Medical History Medical History CVA (cerebral vascular accident) HTN (hypertension) Neuropathy Surgical History Surgical History Hx of tonsillectomy Social History Social History Household Members: Spouse Housing: House Do you presently have visiting nurse or other home services: No Patient Tobacco Use Status: Former Tobacco user Quit Date: Pt. reports smoking from [employer] until roughly 20 yrs ago Tobacco use type: Cigarette Years Smoked: Appx. 30 Smoked in Last 30 Days: No Use of substances other than those prescribed or required for medical reasons: No Currently Displaying Signs/Symptoms of Drug Intoxication Withdrawal: No Have you been hit, kicked, punched, or otherwise hurt by someone within the past year? If so, by whom?: No Do you feel safe in your current relationship?: No Is there a partner from a previous relationship who is making you feel unsafe now?: No Are you made to feel afraid or neglected: No Spiritual Healthcare Practices: [employer]- no restrictions with care Advance Directives: No Advance Directives Information Provided: Yes Do you have thoughts of harming others: None Do you have a plan to hurt others: No Plan Recently lost weight without trying: No How much weight loss: Not applicable Eating poorly because of decreased appetite: Yes Nutrition screen score: 1 Meds Allergies Allergy/AdvReac Type Severity Reaction Status Date / Time No Known Allergies Allergy Unknown Unverified 04/20/20 17:02 amlodipine AdvReac Unknown Edema Verified 04/20/20 17:02 Active Medications: Current Medications Dexamethasone Sodium Phosphate (Dexamethasone Sod Phosphate 4 Mg/Ml Vial) 6 mg IVPUSH DAILY [facility] Last Admin: 04/15/21 11:23 Dose: 6 mg Documented by: Famotidine (Famotidine/Pf 20 Mg/2 Ml Vial) 20 mg IVPUSH BID [facility] Last Admin: 04/15/21 09:02 Dose: 20 mg Documented by: Sodium Chloride (Ns) 1,000 mls @ 80 mls/hr IVCONT .[id number] [facility] Last Admin: 04/15/21 09:00 Dose: 80 mls/hr Documented by: Sodium Chloride (0.9 % Sodium Chloride Flush 3 Ml Syringe) 3 ml IVFLUSH QSHIFT [facility] Last Admin: 04/15/21 09:02 Dose: 3 ml Documented by: Physical Exam Vital Signs: Last Vital Signs Temp 98.7 F 04/15/21 08:00 Pulse 65 04/15/21 11:00 Resp 12 04/15/21 11:00 BP 105/71 04/15/21 11:00 Pulse Ox 89 L 04/15/21 11:00 BMI result Body Mass Index 31.0 Const General: no acute distress Eyes General: appearance normal, both eyes and all related structures Neck Neck: Yes supple Resp Auscultation: diminished lung sounds Cardio Rate: regular rate GI Palpation (GI): Soft to palpation Neuro General: moves all extremities Results Lab Results Result Diagrams: 04/15/21 05:19 04/15/21 10:47 Lab results: Chemistry 04/14/21 04/14/21 04/14/21 14:20 17:48 20:11 Sodium 106 L* 108 L* Potassium 3.5 3.2 L Carbon Dioxide 23 24 BUN 13 12 Creatinine 0.74 0.69 Calcium 8.0 L 7.7 L Phosphorus 2.3 L 04/14/21 04/15/21 04/15/21 22:22 00:15 02:19 Sodium 109 L* 110 L* 111 L* Potassium 3.3 3.3 3.4 Carbon Dioxide 25 25 24 BUN 12 12 11 Creatinine 0.67 0.66 0.65 Calcium 7.7 L 7.6 L 7.4 L Phosphorus 04/15/21 04/15/21 04/15/21 05:19 05:19 10:47 Sodium 113 L* 116 L* Potassium 4.1 D 3.4 Carbon Dioxide 25 26 BUN 11 11 Creatinine 0.66 0.67 Calcium 7.2 L 7.7 L D Phosphorus Cancelled 4.6 H Hematology 04/14/21 04/15/21 14:20 05:19 WBC 8.2 8.8 Hgb 13.4 L 13.1 L Plt Count 92 L 74 L Urinalysis 04/14/21 16:21 Urine Color YELLOW Urine Appearance CLEAR Urine pH 6.0 Ur Specific Lopez 1.025 Urine Protein 2+ H Urine Glucose (UA) NEG Urine Ketones 5 Urine Blood 1+ H Urine Nitrite NEG Ur Leukocyte Esterase NEG Urine RBC 1-4 Urine WBC 0 Ur Squamous Epith Cells NONE Urine Studies 04/14/21 16:22 Urine Osmolality 788 Assessment and Plan (1) Acute hyponatremia: Status: Acute Hyponatremia with Altered Mental Status on a background of COVID 19 positivity Hyponatremia likely multifactorial. Had been having poor PO intake; H/O being on HCTZ Was given hypertonic saline briefly. Currently on Normal saline. Urine studies reviewed Sodium correction quite appropriate; Continue current supportive care; Keep checking Na Q 2hrly Avoid correction of more than 8 to 10 MEq in 24 hours to prevent Central Pontine Myelinolysis No HCTZ/Losartan for now; Shall closely follow up Procedures Date of Service Date of Service: 04/15/21
--- NOTE | 2021-04-15 13:44 | MHC.CM.PN ---
Pt in ICU with hyponatremia and COVID+ (no vax) Pt confused and unable to participate in CM assessment. Information obtained from ICU staff and EMR: Of note, pt's spouse, with whom he resides, is also COVID + but convalescing at home. Pt was independent prior to hospitalization without services. Goals of d/c planning would be for a return to home. CM to follow for finalization of d/c plans
[2021-04-15 14:06] LABS: Sodium Urine Random < 20.0 mmol/L
[2021-04-15 14:13] LABS: Osmolality Urine 114 mosm/kg (373-1093)
[2021-04-15] MEDS: KCl 40 mEq in 5% Dex/0.9% Sod 40 MEQ/1,000 ML IV.SOLN 60 MEQ IVCONT (16:18)
--- NOTE | 2021-04-15 16:27 | PM.CCPN ---
Subjective Subjective Date of Service: 04/15/21 Interval History: 66-year-old male who had been in a good state of health with just hypertension on hydrochlorothiazide and losartan presents with symptomatic acute hyponatremia with sodium 106 and some alteration of mental status and now corrected up to 116 at a rate of 0.5 mEq per hour and with definite improvement in mental status but did drop his oxygen saturations into the 80s and CT scan did show of modest extent bilateral ground-glass infiltrates consistent with COVID-19 pneumonitis and he was started on progressive amounts of oxygen and currently on high-flow because of increasing tachypnea but with a stable saturation of 97% His head CT scan is negative at at its baseline Critical Care Time (minutes): 45 Physical Exam Vital Signs: Vital Signs: Last Vital Signs Temp 96.8 F 04/15/21 12:00 Pulse 59 04/15/21 16:00 Resp 27 H 04/15/21 16:07 BP 93/59 L 04/15/21 16:00 Pulse Ox 91 L 04/15/21 16:00 BMI result Body Mass Index 31.0 Stable vital signs awake alert improved encephalopathy and nonfocal neurologically Urine sodium being less than 20 with a very high urine osmolality of 750 in this case indicates as we felt combination of hypovolemia due to poor intake with the hydrochlorothiazide toxicity Oxygen saturations dipped into the 80s currently on high-flow and were going to initiate Decadron and baricitinib Abdomen is soft no organomegaly Lungs thus far without accessory muscle use or diaphragmatic effort Cardiac no gallops no neck vein distension Objective Data Labs CBC & Chem 7: 04/15/21 05:19 04/15/21 10:47 Labs: Laboratory Results - last 24 hr 04/14/21 04/14/21 04/14/21 16:21 16:22 16:22 WBC RBC Hgb Hct MCV MCH MCHC RDW Plt Count MPV Immature Gran % (Auto) Neut % (Auto) Lymph % (Auto) [place] % (Auto) Eos % (Auto) Baso % (Auto) Lymph # (Auto) [place] # (Auto) Eos # (Auto) Baso # (Auto) Abs Immat Gran (auto) Absolute Neuts (auto) Absolute Nucleated RBC Nucleated RBC % (auto) D-Dimer High Sensitivty Sodium Potassium Chloride Carbon Dioxide Anion Gap BUN Creatinine Estim Creat Clear Calc Estimated GFR Random Glucose Fasting Glucose Calcium Phosphorus Magnesium Ferritin Total Creatine Kinase C-Reactive Protein B-Natriuretic Peptide TSH Urine Color YELLOW Urine Appearance CLEAR Urine pH 6.0 Ur Specific [place] 1.025 Urine Protein 2+ H Urine Glucose (UA) NEG Urine Ketones 5 Urine Blood 1+ H Urine Nitrite NEG Ur Leukocyte Esterase NEG Urine RBC 1-4 Urine WBC 0 Ur Squamous Epith Cells NONE Urine Bacteria 1+ Urine Osmolality 788 Ur Random Sodium < 20.0 Ur Random Chloride 39.0 Respiratory Panel Og Adenovirus (Rapid PCR) B.pert (TEM-PCR) B.parapertussis DNA PCR C. pneumoniae DNA (PCR) Coronavirus OC43 (PCR) Coronavirus HKU1 (PCR) Coronavirus 229E (PCR) COVID-19 (JG) COVID-19 Clin Com Coronavirus NL63 (PCR) Human Metapneumovir PCR Influenza A (RT-PCR) Influenza B (RT-PCR) M. pneumoniae (PCR) Parainfluenza 1 (PCR) Parainfluenza 2 (PCR) Parainfluenza 3 (PCR) Parainfluenza 4 (PCR) RSV (PCR) Entero/Rhino (PCR) SARS-CoV-2 RNA (RT-PCR) 04/14/21 04/14/21 04/14/21 17:47 17:48 17:48 WBC RBC Hgb Hct MCV MCH MCHC RDW Plt Count MPV Immature Gran % (Auto) Neut % (Auto) Lymph % (Auto) [place] % (Auto) Eos % (Auto) Baso % (Auto) Lymph # (Auto) [place] # (Auto) Eos # (Auto) Baso # (Auto) Abs Immat Gran (auto) Absolute Neuts (auto) Absolute Nucleated RBC Nucleated RBC % (auto) D-Dimer High Sensitivty Sodium Potassium Chloride Carbon Dioxide Anion Gap BUN Creatinine Estim Creat Clear Calc Estimated GFR Random Glucose Fasting Glucose Calcium Phosphorus 2.3 L Magnesium Ferritin Total Creatine Kinase 154 C-Reactive Protein 1.28 H B-Natriuretic Peptide TSH 0.59 Urine Color Urine Appearance Urine pH Ur Specific [place] Urine Protein Urine Glucose (UA) Urine Ketones Urine Blood Urine Nitrite Ur Leukocyte Esterase Urine RBC Urine WBC Ur Squamous Epith Cells Urine Bacteria Urine Osmolality Ur Random Sodium Ur Random Chloride Respiratory Panel Og See Note Adenovirus (Rapid PCR) Not Detected B.pert (TEM-PCR) Not Detected B.parapertussis DNA PCR Not Detected C. pneumoniae DNA (PCR) Not Detected Coronavirus OC43 (PCR) Not Detected Coronavirus HKU1 (PCR) Not Detected Coronavirus 229E (PCR) Not Detected COVID-19 (JG) Positive A COVID-19 Clin Com See Note Coronavirus NL63 (PCR) Not Detected Human Metapneumovir PCR Not Detected Influenza A (RT-PCR) Not Detected Influenza B (RT-PCR) Not Detected M. pneumoniae (PCR) Not Detected Parainfluenza 1 (PCR) Not Detected Parainfluenza 2 (PCR) Not Detected Parainfluenza 3 (PCR) Not Detected Parainfluenza 4 (PCR) Not Detected RSV (PCR) Not Detected Entero/Rhino (PCR) Not Detected SARS-CoV-2 RNA (RT-PCR) Detected A 04/14/21 04/14/21 04/14/21 17:48 17:48 20:11 WBC RBC Hgb Hct MCV MCH MCHC RDW Plt Count MPV Immature Gran % (Auto) Neut % (Auto) Lymph % (Auto) [place] % (Auto) Eos % (Auto) Baso % (Auto) Lymph # (Auto) [place] # (Auto) Eos # (Auto) Baso # (Auto) Abs Immat Gran (auto) Absolute Neuts (auto) Absolute Nucleated RBC Nucleated RBC % (auto) D-Dimer High Sensitivty 282 Sodium 108 L* Potassium 3.2 L Chloride 76 L Carbon Dioxide 24 Anion Gap 11 L BUN 12 Creatinine 0.69 Estim Creat Clear Calc 109.7 Estimated GFR > 60 Random Glucose 164 H Fasting Glucose Calcium 7.7 L Phosphorus Magnesium Ferritin Total Creatine Kinase C-Reactive Protein B-Natriuretic Peptide 87 TSH Urine Color Urine Appearance Urine pH Ur Specific [place] Urine Protein Urine Glucose (UA) Urine Ketones Urine Blood Urine Nitrite Ur Leukocyte Esterase Urine RBC Urine WBC Ur Squamous Epith Cells Urine Bacteria Urine Osmolality Ur Random Sodium Ur Random Chloride Respiratory Panel Og Adenovirus (Rapid PCR) B.pert (TEM-PCR) B.parapertussis DNA PCR C. pneumoniae DNA (PCR) Coronavirus OC43 (PCR) Coronavirus HKU1 (PCR) Coronavirus 229E (PCR) COVID-19 (JG) COVID-19 Clin Com Coronavirus NL63 (PCR) Human Metapneumovir PCR Influenza A (RT-PCR) Influenza B (RT-PCR) M. pneumoniae (PCR) Parainfluenza 1 (PCR) Parainfluenza 2 (PCR) Parainfluenza 3 (PCR) Parainfluenza 4 (PCR) RSV (PCR) Entero/Rhino (PCR) SARS-CoV-2 RNA (RT-PCR) 04/14/21 04/15/21 04/15/21 22:22 00:15 02:19 WBC RBC Hgb Hct MCV MCH MCHC RDW Plt Count MPV Immature Gran % (Auto) Neut % (Auto) Lymph % (Auto) [place] % (Auto) Eos % (Auto) Baso % (Auto) Lymph # (Auto) [place] # (Auto) Eos # (Auto) Baso # (Auto) Abs Immat Gran (auto) Absolute Neuts (auto) Absolute Nucleated RBC Nucleated RBC % (auto) D-Dimer High Sensitivty Sodium 109 L* 110 L* 111 L* Potassium 3.3 3.3 3.4 Chloride 77 L 77 L 79 L Carbon Dioxide 25 25 24 Anion Gap 10 L 11 L 11 L BUN 12 12 11 Creatinine 0.67 0.66 0.65 Estim Creat Clear Calc 116.5 118.3 120.1 Estimated GFR > 60 > 60 > 60 Random Glucose Fasting Glucose 129 H 117 H 103 H Calcium 7.7 L 7.6 L 7.4 L Phosphorus Magnesium Ferritin Total Creatine Kinase C-Reactive Protein B-Natriuretic Peptide TSH Urine Color Urine Appearance Urine pH Ur Specific [place] Urine Protein Urine Glucose (UA) Urine Ketones Urine Blood Urine Nitrite Ur Leukocyte Esterase Urine RBC Urine WBC Ur Squamous Epith Cells Urine Bacteria Urine Osmolality Ur Random Sodium Ur Random Chloride Respiratory Panel Og Adenovirus (Rapid PCR) B.pert (TEM-PCR) B.parapertussis DNA PCR C. pneumoniae DNA (PCR) Coronavirus OC43 (PCR) Coronavirus HKU1 (PCR) Coronavirus 229E (PCR) COVID-19 (JG) COVID-19 Clin Com Coronavirus NL63 (PCR) Human Metapneumovir PCR Influenza A (RT-PCR) Influenza B (RT-PCR) M. pneumoniae (PCR) Parainfluenza 1 (PCR) Parainfluenza 2 (PCR) Parainfluenza 3 (PCR) Parainfluenza 4 (PCR) RSV (PCR) Entero/Rhino (PCR) SARS-CoV-2 RNA (RT-PCR) 04/15/21 04/15/21 04/15/21 05:19 05:19 05:19 WBC 8.8 RBC 4.17 L Hgb 13.1 L Hct 34.6 L MCV 83.0 MCH 31.4 MCHC 37.9 H RDW 10.9 L Plt Count 74 L MPV 11.5 Immature Gran % (Auto) 0.7 H Neut % (Auto) 89.1 H Lymph % (Auto) 6.7 L [place] % (Auto) 3.4 Eos % (Auto) 0.0 Baso % (Auto) 0.1 Lymph # (Auto) 0.6 L [place] # (Auto) 0.3 Eos # (Auto) 0.0 Baso # (Auto) 0.0 Abs Immat Gran (auto) 0.06 H Absolute Neuts (auto) 7.8 Absolute Nucleated RBC 0.000 Nucleated RBC % (auto) 0.0 D-Dimer High Sensitivty Sodium 113 L* Potassium 4.1 D Chloride 81 L Carbon Dioxide 25 Anion Gap 11 L BUN 11 Creatinine 0.66 Estim Creat Clear Calc 118.3 Estimated GFR > 60 Random Glucose Fasting Glucose 90 Calcium 7.2 L Phosphorus Cancelled 4.6 H Magnesium 1.7 Ferritin Cancelled 856 H Total Creatine Kinase C-Reactive Protein B-Natriuretic Peptide TSH Urine Color Urine Appearance Urine pH Ur Specific [place] Urine Protein Urine Glucose (UA) Urine Ketones Urine Blood Urine Nitrite Ur Leukocyte Esterase Urine RBC Urine WBC Ur Squamous Epith Cells Urine Bacteria Urine Osmolality Ur Random Sodium Ur Random Chloride Respiratory Panel Og Adenovirus (Rapid PCR) B.pert (TEM-PCR) B.parapertussis DNA PCR C. pneumoniae DNA (PCR) Coronavirus OC43 (PCR) Coronavirus HKU1 (PCR) Coronavirus 229E (PCR) COVID-19 (JG) COVID-19 Clin Com Coronavirus NL63 (PCR) Human Metapneumovir PCR Influenza A (RT-PCR) Influenza B (RT-PCR) M. pneumoniae (PCR) Parainfluenza 1 (PCR) Parainfluenza 2 (PCR) Parainfluenza 3 (PCR) Parainfluenza 4 (PCR) RSV (PCR) Entero/Rhino (PCR) SARS-CoV-2 RNA (RT-PCR) 04/15/21 04/15/21 04/15/21 10:47 13:19 13:19 WBC RBC Hgb Hct MCV MCH MCHC RDW Plt Count MPV Immature Gran % (Auto) Neut % (Auto) Lymph % (Auto) [place] % (Auto) Eos % (Auto) Baso % (Auto) Lymph # (Auto) [place] # (Auto) Eos # (Auto) Baso # (Auto) Abs Immat Gran (auto) Absolute Neuts (auto) Absolute Nucleated RBC Nucleated RBC % (auto) D-Dimer High Sensitivty Sodium 116 L* Potassium 3.4 Chloride 84 L Carbon Dioxide 26 Anion Gap 9 L BUN 11 Creatinine 0.67 Estim Creat Clear Calc 116.5 Estimated GFR > 60 Random Glucose 87 D Fasting Glucose Calcium 7.7 L D Phosphorus Magnesium Ferritin Total Creatine Kinase C-Reactive Protein B-Natriuretic Peptide TSH Urine Color Urine Appearance Urine pH Ur Specific [place] Urine Protein Urine Glucose (UA) Urine Ketones Urine Blood Urine Nitrite Ur Leukocyte Esterase Urine RBC Urine WBC Ur Squamous Epith Cells Urine Bacteria Urine Osmolality 114 L Ur Random Sodium < 20.0 Ur Random Chloride Respiratory Panel Og Adenovirus (Rapid PCR) B.pert (TEM-PCR) B.parapertussis DNA PCR C. pneumoniae DNA (PCR) Coronavirus OC43 (PCR) Coronavirus HKU1 (PCR) Coronavirus 229E (PCR) COVID-19 (JG) COVID-19 Clin Com Coronavirus NL63 (PCR) Human Metapneumovir PCR Influenza A (RT-PCR) Influenza B (RT-PCR) M. pneumoniae (PCR) Parainfluenza 1 (PCR) Parainfluenza 2 (PCR) Parainfluenza 3 (PCR) Parainfluenza 4 (PCR) RSV (PCR) Entero/Rhino (PCR) SARS-CoV-2 RNA (RT-PCR) Progress Note: A&P Assessment and plan (1) Acute hyponatremia: Status: Acute (2) Acute metabolic encephalopathy: Status: Acute (3) COVID-19 determined by clinical diagnostic criteria: Status: Acute (4) Hypertensive arteriosclerotic cardiovascular disease: Status: Acute (5) Acute hypoxemic respiratory failure: Status: Acute Assessment and Plan: At this point on going to need to place him on DVT prophylaxis and be going to initiate both baricitinib as well as Decadron Quality Stroke Does the patient have a stroke diagnosis?: No VTE Prior VTE?: No VTE Risk Level:: Medical - low VTE Device Contraindication: N/A - Device Ordered VTE Drug Contraindication: Treatment Not Indicated
--- NOTE | 2021-04-15 16:58 | PC.NURSE ---
Pt too lethargic for PO intake at this time. aware. D5NS 40KCL- IV infusing at 60ml/hr. Repeat BMP pending at this time. Urine output picked up to 350ml/hr from 1500 to 1600, MD aware. Will continue to assess cognition and swallow ability to determine ability to take PO baricitinib. IV decadron started and given today IV.
[2021-04-15 18:50] LABS: Anion Gap 8 (12-20); Blood Urea Nitrogen 11 mg/dL (9-16); Calcium 7.6 mg/dL (8.4-10.2); Carbon Dioxide 26 mmol/L (22-29); Chloride 91 mmol/L (96-108); Creatinine Clr Calc Pharmacy 106.9; Estimated Glomerular Filt Rate > 60; Glucose Random 149 mg/dL (60-115); Potassium 3.8 mmol/L (3.3-5.1); Sodium 121 mmol/L (135-145)
[2021-04-15] MEDS: Heparin Sodium,Porcine 5,000 UNIT/ML VIAL 5000 UNIT SUBCUT (19:26)
[2021-04-15 23:58] LABS: Anion Gap 13 (12-20); Blood Urea Nitrogen 11 mg/dL (9-16); Carbon Dioxide 23 mmol/L (22-29); Chloride 93 mmol/L (96-108); Creatinine Clr Calc Pharmacy 100.1; Estimated Glomerular Filt Rate > 60; Glucose Random 143 mg/dL (60-115); Potassium 3.8 mmol/L (3.3-5.1); Sodium 125 mmol/L (135-145)
[2021-04-16] VITALS (25 sets, daily range): BP systolic 96–133; BP diastolic 57–87; PULSE 52–72; RESP 16–28; TEMP 35.7–37.3; O2SAT 84–95; BMI 30.4
[2021-04-16] MEDS: Heparin Sodium,Porcine 5,000 UNIT/ML VIAL 5000 UNIT SUBCUT ×3 (02:07→17:00)
[2021-04-16 05:39] LABS: VBG Base Excess 3.4 mmol/L; VBG HCO3 26 mmol/L (22-26); VBG pCO2 35 mmHg; VBG pH 7.48 (7.32-7.43); VBG pO2 50 mmHg
[2021-04-16 05:52] LABS: Venous Blood Gas Refer to POC result
[2021-04-16 05:56] LABS: Imm Gran Abs Auto 0.03 X10*3/uL (0.00-0.03); Imm Gran Pct Auto 0.5 % (0.0-0.4); MANUAL DIFF FLAG SCAN; Monocytes Percent Auto 3.3 % (2-11); PLT CLUMP 1; Red Cell Distribution Width 11.3 % (11.0-16.0); SCAN SMEAR FLAG 1
[2021-04-16 05:58] LABS: Basophils Percent Auto 0.2 % (0-2); Hematocrit 37.2 % (42.0-52.0); Hemoglobin 13.6 g/dl (14.0-18.0); Lymphocytes Absolute Auto 0.3 X10*3/uL (1.2-4.9); Lymphocytes Percent Auto 4.6 % (20-40); Mean Corpuscular HGB Conc 36.6 g/dl (31.0-36.0); Mean Corpuscular Hemoglobin 31.3 pg (27.0-33.0); Mean Corpuscular Volume 85.5 fL (80.0-98.0); Mean Platelet Volume 11.6 fL (9.4-12.4); Monocytes Absolute Auto 0.2 X10*3/uL (0.1-1.2); Neutrophils Absolute Auto 5.8 x10*3/uL (2.0-8.3); Neutrophils Percent Auto 91.4 % (45-73); Red Blood Count 4.35 X10*6/uL (4.60-5.80)
[2021-04-16 06:01] LABS: Platelet Count 88 X10*3/uL (160-400); White Blood Count 6.3 X10*3/uL (4.8-10.8)
[2021-04-16 06:13] LABS: Alanine Aminotransferase 30 U/L (0-40); Albumin Level 2.7 g/dL (3.5-5.0); Alkaline Phosphatase 69 U/L (39-117); Anion Gap 10 (12-20); Aspartate Amino Transferase 29 U/L (5-37); Bilirubin Total 1.1 mg/dL (0.0-1.0); Blood Urea Nitrogen 11 mg/dL (9-16); Carbon Dioxide 24 mmol/L (22-29); Chloride 97 mmol/L (96-108); Creatinine Clr Calc Pharmacy 100.4; Estimated Glomerular Filt Rate > 60; Glucose Random 128 mg/dL (60-115); Potassium 3.8 mmol/L (3.3-5.1); Sodium 127 mmol/L (135-145); Total Protein 5.1 g/dL (6.5-8.0)
[2021-04-16 06:16] LABS: SLIDE REVIEW VERIFIED
[2021-04-16] MEDS: dexAMETHasone sod phosphate 4 MG/ML VIAL 6 MG IVPUSH (07:48)
[2021-04-16] MEDS: KCl 40 mEq in 5% Dex/0.9% Sod 40 MEQ/1,000 ML IV.SOLN 60 MEQ IVCONT (07:48)
[2021-04-16] MEDS: 0.9 % Sodium Chloride Flush 3 ML SYRINGE IVFLUSH ×3 (07:48→21:05)
[2021-04-16] MEDS: Famotidine/PF 20 MG/2 ML VIAL IVPUSH ×2 (07:48→21:05)
--- NOTE | 2021-04-16 10:27 | PM.CCPN ---
Subjective Subjective Date of Service: 04/16/21 Interval History: 66-year-old male who was unvaccinated with was noted to be symptomatic for 2 weeks prior to admission and 5 days prior to admission tested positive for COVID-19 when he presented there was no dyspnea no hypoxia and he had altered mental status and apparently profoundly hyponatremic and it appeared to be a combination of diminished oral intake and hydrochlorothiazide and the prove of course was in the urine sodium and osmolality that this was the case this was not an inappropriate ADH and he has been correcting in having stop the hydrochlorothiazide hydrating the no with normal saline and sodiums up to 127 with complete buddhism of mental status but did become hypoxic and did develop ground-glass infiltrates bilaterally to a modest extent currently on nasal high-flow very comfortable Critical Care Time (minutes): 45 Physical Exam Vital Signs: Vital Signs: Last Vital Signs Temp 97.6 F 04/16/21 08:00 Pulse 59 04/16/21 10:00 Resp 20 04/16/21 10:00 BP 131/82 04/16/21 10:00 Pulse Ox 94 04/16/21 10:00 BMI result Body Mass Index 30.4 awake alert in no distress and nonfocal neurological ly cardiac exam by bedside echo class 1 lungs without adventitious sounds and no accessory muscle use abdomen benign eating and tolerating food with no organomegaly skin intact Objective Data Labs CBC & Chem 7: 04/16/21 05:34 04/16/21 05:34 Labs: Laboratory Results - last 24 hr 04/14/21 04/15/21 04/15/21 17:47 10:47 13:19 WBC RBC Hgb Hct MCV MCH MCHC RDW Plt Count MPV Immature Gran % (Auto) Neut % (Auto) Lymph % (Auto) [place] % (Auto) Eos % (Auto) Baso % (Auto) Lymph # (Auto) [place] # (Auto) Eos # (Auto) Baso # (Auto) Abs Immat Gran (auto) Absolute Neuts (auto) Absolute Nucleated RBC Nucleated RBC % (auto) Smear Tech's Comments VBG pH VBG pCO2 VBG pO2 VBG HCO3 VBG O2 Saturation VBG Base Excess Sodium 116 L* Potassium 3.4 Chloride 84 L Carbon Dioxide 26 Anion Gap 9 L BUN 11 Creatinine 0.67 Estim Creat Clear Calc 116.5 Estimated GFR > 60 Random Glucose 87 D Calcium 7.7 L D Total Bilirubin AST ALT Alkaline Phosphatase Total Protein Albumin Urine Osmolality 114 L Ur Random Sodium Respiratory Panel Og See Note Adenovirus (Rapid PCR) Not Detected B.pert (TEM-PCR) Not Detected B.parapertussis DNA PCR Not Detected C. pneumoniae DNA (PCR) Not Detected Coronavirus OC43 (PCR) Not Detected Coronavirus HKU1 (PCR) Not Detected Coronavirus 229E (PCR) Not Detected Coronavirus NL63 (PCR) Not Detected Human Metapneumovir PCR Not Detected Influenza A (RT-PCR) Not Detected Influenza B (RT-PCR) Not Detected M. pneumoniae (PCR) Not Detected Parainfluenza 1 (PCR) Not Detected Parainfluenza 2 (PCR) Not Detected Parainfluenza 3 (PCR) Not Detected Parainfluenza 4 (PCR) Not Detected RSV (PCR) Not Detected Entero/Rhino (PCR) Not Detected SARS-CoV-2 RNA (RT-PCR) Detected A 04/15/21 04/15/21 04/15/21 13:19 18:05 23:32 WBC RBC Hgb Hct MCV MCH MCHC RDW Plt Count MPV Immature Gran % (Auto) Neut % (Auto) Lymph % (Auto) [place] % (Auto) Eos % (Auto) Baso % (Auto) Lymph # (Auto) [place] # (Auto) Eos # (Auto) Baso # (Auto) Abs Immat Gran (auto) Absolute Neuts (auto) Absolute Nucleated RBC Nucleated RBC % (auto) Smear Tech's Comments VBG pH VBG pCO2 VBG pO2 VBG HCO3 VBG O2 Saturation VBG Base Excess Sodium 121 L 125 L Potassium 3.8 3.8 Chloride 91 L 93 L Carbon Dioxide 26 23 Anion Gap 8 L 13 BUN 11 11 Creatinine 0.73 0.78 Estim Creat Clear Calc 106.9 100.1 Estimated GFR > 60 > 60 Random Glucose 149 H D 143 H Calcium 7.6 L 8.0 L Total Bilirubin AST ALT Alkaline Phosphatase Total Protein Albumin Urine Osmolality Ur Random Sodium < 20.0 Respiratory Panel Og Adenovirus (Rapid PCR) B.pert (TEM-PCR) B.parapertussis DNA PCR C. pneumoniae DNA (PCR) Coronavirus OC43 (PCR) Coronavirus HKU1 (PCR) Coronavirus 229E (PCR) Coronavirus NL63 (PCR) Human Metapneumovir PCR Influenza A (RT-PCR) Influenza B (RT-PCR) M. pneumoniae (PCR) Parainfluenza 1 (PCR) Parainfluenza 2 (PCR) Parainfluenza 3 (PCR) Parainfluenza 4 (PCR) RSV (PCR) Entero/Rhino (PCR) SARS-CoV-2 RNA (RT-PCR) 04/16/21 04/16/21 04/16/21 05:33 05:34 05:34 WBC 6.3 RBC 4.35 L Hgb 13.6 L Hct 37.2 L MCV 85.5 MCH 31.3 MCHC 36.6 H RDW 11.3 Plt Count 88 L MPV 11.6 Immature Gran % (Auto) 0.5 H Neut % (Auto) 91.4 H Lymph % (Auto) 4.6 L [place] % (Auto) 3.3 Eos % (Auto) 0.0 Baso % (Auto) 0.2 Lymph # (Auto) 0.3 L [place] # (Auto) 0.2 Eos # (Auto) 0.0 Baso # (Auto) 0.0 Abs Immat Gran (auto) 0.03 Absolute Neuts (auto) 5.8 Absolute Nucleated RBC 0.000 Nucleated RBC % (auto) 0.0 Smear Tech's Comments VERIFIED VBG pH 7.48 H VBG pCO2 35 VBG pO2 50 VBG HCO3 26 VBG O2 Saturation 81.0 VBG Base Excess 3.4 Sodium 127 L Potassium 3.8 Chloride 97 Carbon Dioxide 24 Anion Gap 10 L BUN 11 Creatinine 0.77 Estim Creat Clear Calc 100.4 Estimated GFR > 60 Random Glucose 128 H Calcium 8.0 L Total Bilirubin 1.1 H AST 29 ALT 30 Alkaline Phosphatase 69 Total Protein 5.1 L Albumin 2.7 L Urine Osmolality Ur Random Sodium Respiratory Panel Og Adenovirus (Rapid PCR) B.pert (TEM-PCR) B.parapertussis DNA PCR C. pneumoniae DNA (PCR) Coronavirus OC43 (PCR) Coronavirus HKU1 (PCR) Coronavirus 229E (PCR) Coronavirus NL63 (PCR) Human Metapneumovir PCR Influenza A (RT-PCR) Influenza B (RT-PCR) M. pneumoniae (PCR) Parainfluenza 1 (PCR) Parainfluenza 2 (PCR) Parainfluenza 3 (PCR) Parainfluenza 4 (PCR) RSV (PCR) Entero/Rhino (PCR) SARS-CoV-2 RNA (RT-PCR) Progress Note: A&P Assessment and plan (1) Acute hypoxemic respiratory failure: Status: Acute (2) Hypertensive arteriosclerotic cardiovascular disease: Status: Acute (3) COVID-19 determined by clinical diagnostic criteria: Status: Acute (4) Acute metabolic encephalopathy: Status: Acute (5) Left hand pain: Status: Acute (6) Acute hyponatremia: Status: Acute Assessment and Plan: plan is just to continue to observe tract the sodium correction so as not to replete too fast and he is right on schedule at this point potassium replete Quality Stroke Does the patient have a stroke diagnosis?: No VTE Prior VTE?: No VTE Risk Level:: Medical - low VTE Device Contraindication: N/A - Device Ordered VTE Drug Contraindication: Treatment Not Indicated
--- NOTE | 2021-04-16 14:21 | P.PNNP_ITS ---
Subjective Subjective Date of Service: 04/16/21 Interval history: Events noted. All recent data reviewed Physical Exam Vital Signs: Vital Signs: Last Vital Signs Temp 97.2 F 04/16/21 12:00 Pulse 62 04/16/21 13:00 Resp 16 04/16/21 13:00 BP 124/82 04/16/21 13:00 Pulse Ox 92 04/16/21 13:00 BMI result Body Mass Index 30.4 Const: General: no acute distress Eyes: EOM: EOMs intact bilaterally Neck: Neck: Yes supple Resp: Auscultation: diminished lung sounds Cardio: Rate: regular rate GI: Palpation (GI): Soft to palpation Neuro: General: moves all extremities Objective Data Labs CBC & Chem 7: 04/16/21 05:34 04/16/21 05:34 Labs: Laboratory Results - last 24 hr 04/15/21 04/15/21 04/16/21 18:05 23:32 05:33 WBC RBC Hgb Hct MCV MCH MCHC RDW Plt Count MPV Immature Gran % (Auto) Neut % (Auto) Lymph % (Auto) [place] % (Auto) Eos % (Auto) Baso % (Auto) Lymph # (Auto) [place] # (Auto) Eos # (Auto) Baso # (Auto) Abs Immat Gran (auto) Absolute Neuts (auto) Absolute Nucleated RBC Nucleated RBC % (auto) Smear Tech's Comments VBG pH 7.48 H VBG pCO2 35 VBG pO2 50 VBG HCO3 26 VBG O2 Saturation 81.0 VBG Base Excess 3.4 Sodium 121 L 125 L Potassium 3.8 3.8 Chloride 91 L 93 L Carbon Dioxide 26 23 Anion Gap 8 L 13 BUN 11 11 Creatinine 0.73 0.78 Estim Creat Clear Calc 106.9 100.1 Estimated GFR > 60 > 60 Random Glucose 149 H D 143 H Calcium 7.6 L 8.0 L Total Bilirubin AST ALT Alkaline Phosphatase Total Protein Albumin 04/16/21 04/16/21 05:34 05:34 WBC 6.3 RBC 4.35 L Hgb 13.6 L Hct 37.2 L MCV 85.5 MCH 31.3 MCHC 36.6 H RDW 11.3 Plt Count 88 L MPV 11.6 Immature Gran % (Auto) 0.5 H Neut % (Auto) 91.4 H Lymph % (Auto) 4.6 L [place] % (Auto) 3.3 Eos % (Auto) 0.0 Baso % (Auto) 0.2 Lymph # (Auto) 0.3 L [place] # (Auto) 0.2 Eos # (Auto) 0.0 Baso # (Auto) 0.0 Abs Immat Gran (auto) 0.03 Absolute Neuts (auto) 5.8 Absolute Nucleated RBC 0.000 Nucleated RBC % (auto) 0.0 Smear Tech's Comments VERIFIED VBG pH VBG pCO2 VBG pO2 VBG HCO3 VBG O2 Saturation VBG Base Excess Sodium 127 L Potassium 3.8 Chloride 97 Carbon Dioxide 24 Anion Gap 10 L BUN 11 Creatinine 0.77 Estim Creat Clear Calc 100.4 Estimated GFR > 60 Random Glucose 128 H Calcium 8.0 L Total Bilirubin 1.1 H AST 29 ALT 30 Alkaline Phosphatase 69 Total Protein 5.1 L Albumin 2.7 L Procedures Date of Service Date of Service: 04/16/21 Assessment & Plan Assessment and plan (1) Acute hyponatremia: Status: Acute Assessment and Plan: Hyponatremia with Altered Mental Status on a background of COVID 19 positivity Hyponatremia likely multifactorial. Had been having poor PO intake; H/O being on HCTZ Was given hypertonic saline briefly. Currently on Normal saline. Urine studies reviewed Sodium correction quite appropriate; Continue current supportive care (correction appropriate to prevent [place] Myelinolysis) No HCTZ/Losartan for now; Shall closely follow up Time Spent With Patient Time: Total time spent is greater than 50% in coordination of care (as documented) at patient's floor/unit and/or counseling patient: Progress Note: Quality Stroke Does the patient have a stroke diagnosis?: No
[2021-04-16 15:51] LABS: Anion Gap 10 (12-20); Blood Urea Nitrogen 12 mg/dL (9-16); Calcium 7.9 mg/dL (8.4-10.2); Carbon Dioxide 24 mmol/L (22-29); Chloride 100 mmol/L (96-108); Creatinine Clr Calc Pharmacy 95.5; Estimated Glomerular Filt Rate > 60; Glucose Random 161 mg/dL (60-115); Potassium 3.6 mmol/L (3.3-5.1); Sodium 130 mmol/L (135-145)
--- NOTE | 2021-04-16 17:53 | PC.NURSE ---
A&O X 4. AFEBRILE. VSS. DIET CHANGED TO REGULAR, TOLERATED WELL. REMAINS ON HIGH FLOW 45L/40%. JEANNA RAGLAND UPDATED MULTIPLE TIMES THROUGHOUT THE DAY AND UPDATED ON TRANSFER TO [facility] [place]. RN TO RN GIVEN FOR TRANSFER TO [facility] [place].
[2021-04-17] VITALS (11 sets, daily range): BP systolic 123–142; BP diastolic 69–89; PULSE 51–80; RESP 19–24; TEMP 36.1–36.9; O2SAT 92–97
[2021-04-17] MEDS: KCl 40 mEq in 5% Dex/0.9% Sod 40 MEQ/1,000 ML IV.SOLN 60 MEQ IVCONT ×2 (02:07→20:22)
[2021-04-17] MEDS: Heparin Sodium,Porcine 5,000 UNIT/ML VIAL 5000 UNIT SUBCUT ×3 (02:10→17:13)
[2021-04-17 07:32] LABS: Hematocrit 38.3 % (42.0-52.0); Hemoglobin 13.3 g/dl (14.0-18.0); Mean Corpuscular HGB Conc 34.7 g/dl (31.0-36.0); Mean Corpuscular Hemoglobin 31.2 pg (27.0-33.0); Mean Corpuscular Volume 89.9 fL (80.0-98.0); PLT CLUMP 1; Red Blood Count 4.26 X10*6/uL (4.60-5.80); Red Cell Distribution Width 11.7 % (11.0-16.0)
[2021-04-17 07:34] LABS: D Dimer High Sensitivity 306 NG/ML
[2021-04-17 07:43] LABS: Alanine Aminotransferase 34 U/L (0-40); Albumin Level 2.6 g/dL (3.5-5.0); Alkaline Phosphatase 63 U/L (39-117); Anion Gap 13 (12-20); Aspartate Amino Transferase 30 U/L (5-37); Bilirubin Total 1.2 mg/dL (0.0-1.0); Blood Urea Nitrogen 14 mg/dL (9-16); C Reactive Protein 0.85 mg/dL (< or = 0.50); Carbon Dioxide 22 mmol/L (22-29); Chloride 105 mmol/L (96-108); Creatinine Clr Calc Pharmacy 93.2; Estimated Glomerular Filt Rate > 60; Glucose Random 102 mg/dL (60-115); Sodium 136 mmol/L (135-145)
[2021-04-17 08:10] LABS: Platelet Count 107 X10*3/uL (160-400); White Blood Count 7.2 X10*3/uL (4.8-10.8)
[2021-04-17] MEDS: dexAMETHasone sod phosphate 4 MG/ML VIAL 6 MG IVPUSH (10:44)
[2021-04-17] MEDS: 0.9 % Sodium Chloride Flush 3 ML SYRINGE IVFLUSH ×2 (10:45→16:18)
[2021-04-17] MEDS: Famotidine/PF 20 MG/2 ML VIAL IVPUSH ×2 (10:45→20:22)
--- NOTE | 2021-04-17 13:29 | P.PNIM_ITS ---
Subjective Subjective Date of Service: 04/17/21 Interval History: Stepped down from ICU yesterday. On HFNC, 40% fiO2 @ 40 L/min Denies dyspnea Feels comfortable Review of Systems Review of Systems: Yes all other systems are reviewed and are negative Physical Exam Vital Signs: Vital Signs: Last Vital Signs Temp 97.0 F 04/17/21 11:02 Pulse 53 04/17/21 11:02 Resp 20 04/17/21 11:45 BP 142/84 H 04/17/21 11:02 Pulse Ox 96 04/17/21 11:02 BMI result Body Mass Index 30.4 Gen: in no acute distress HEENT: sclera anicteric, moist mucus membranes Neck: supple Lungs: clear to auscultation bilaterally Heart: regular rate and rhythm, no murmurs Abd: soft, non-tender, non-distended Ext: no edema Skin: warm/well-perfused Neuro: alert and oriented x3, no focal findings Psych: appropriate affect Objective Data Active Medications Baricitinib (Baricitinib 2 Mg Tablet) 4 mg PO Q24H [facility] Stop: 04/28/21 17:01 Last Admin: 04/16/21 16:59 Dose: 4 mg Documented by: CABRERA Dexamethasone Sodium Phosphate (Dexamethasone Sod Phosphate 4 Mg/Ml Vial) 6 mg IVPUSH DAILY [facility] Last Admin: 04/17/21 10:44 Dose: 6 mg Documented by: JINA Famotidine (Famotidine/Pf 20 Mg/2 Ml Vial) 20 mg IVPUSH BID [facility] Last Admin: 04/17/21 10:45 Dose: 20 mg Documented by: JINA Heparin Sodium (Porcine) (Heparin Sodium,Porcine 5,000 Unit/Ml Vial) 5,000 unit SUBCUT Q8H [facility] Last Admin: 04/17/21 10:44 Dose: 5,000 unit Documented by: JINA Potassium Chloride/Dextrose/Sod Cl () 40 meq in 1,000 mls @ 60 mls/hr IVCONT .[id number] [facility] Last Admin: 04/17/21 02:07 Dose: 60 mls/hr Documented by: MILDRED Sodium Chloride (0.9 % Sodium Chloride Flush 3 Ml Syringe) 3 ml IVFLUSH QSHIFT [facility] Last Admin: 04/17/21 10:45 Dose: 3 ml Documented by: JINA Labs CBC & Chem 7: 04/17/21 06:42 04/17/21 06:42 Labs: Laboratory Results - last 24 hr 04/16/21 04/17/21 04/17/21 15:20 06:42 06:42 MCV 89.9 MCH 31.2 MCHC 34.7 RDW 11.7 Plt Count 107 L MPV 11.0 Absolute Nucleated RBC 0.000 Nucleated RBC % (auto) 0.0 D-Dimer High Sensitivty 306 Anion Gap 10 L Estim Creat Clear Calc 95.5 Estimated GFR > 60 Random Glucose 161 H Calcium 7.9 L Total Bilirubin AST ALT Alkaline Phosphatase C-Reactive Protein Total Protein Albumin 04/17/21 06:42 MCV MCH MCHC RDW Plt Count MPV Absolute Nucleated RBC Nucleated RBC % (auto) D-Dimer High Sensitivty Anion Gap 13 Estim Creat Clear Calc 93.2 Estimated GFR > 60 Random Glucose 102 D Calcium 8.0 L Total Bilirubin 1.2 H AST 30 ALT 34 Alkaline Phosphatase 63 C-Reactive Protein 0.85 H Total Protein 5.0 L Albumin 2.6 L Assessment and Plan (1) Acute hypoxemic respiratory failure: Status: Acute (2) Acute metabolic encephalopathy: Status: Acute (3) Acute hyponatremia: Status: Acute Assessment and Plan: hospital d#4 66yo unvaccinated M with HTN + hx CVA without residual, admitted to ICU with altered mental status due to severe hyponatremia, Na 106 hypoxic due to Covid-19 pneumonia, placed on HFNC stepped down to ICU 04/16/21 # Covid-19 pneumonia, severe - d#3/ of dexamethasone, d#3 of baricitinib, trend inflammatory markers, O2 as below # acute hypoxic respiratory failure - wean off HFNC as tolerated, encouarge awake proning # hypoNa - sodium normalized at appropriate rate, was given hypertonic, then normal saline - likely due to dehydration plus HCTZ use # metabolic encephalopathy - resolving with correction of sodium # HTN - d/c'ed HCTZ - if BP rises, restart losartan # hx CVA - not on ASA or statin due to personal beliefs regarding [employer] # VTE ppx - UFH # dispo - PT consult Quality Stroke Does the patient have a stroke diagnosis?: No VTE Prior VTE?: No VTE Risk Level:: Medical - low VTE Device Contraindication: N/A - Device Ordered VTE Drug Contraindication: Treatment Not Indicated
--- NOTE | 2021-04-17 15:49 | P.PNNP_ITS ---
Subjective Subjective Date of Service: 04/17/21 Interval history: Feels comfortable. Na normalized Physical Exam Vital Signs: Vital Signs: Last Vital Signs Temp 97.3 F 04/17/21 15:25 Pulse 80 04/17/21 15:25 Resp 20 04/17/21 15:25 BP 134/77 04/17/21 15:25 Pulse Ox 97 04/17/21 15:25 BMI result Body Mass Index 30.4 Const: General: no acute distress Eyes: EOM: EOMs intact bilaterally Neck: Neck: Yes supple Resp: Auscultation: diminished lung sounds Cardio: Rate: regular rate GI: Palpation (GI): Soft to palpation Neuro: General: moves all extremities Objective Data Labs CBC & Chem 7: 04/17/21 06:42 04/17/21 06:42 Labs: Laboratory Results - last 24 hr 04/16/21 04/17/21 04/17/21 15:20 06:42 06:42 WBC 7.2 RBC 4.26 L Hgb 13.3 L Hct 38.3 L MCV 89.9 MCH 31.2 MCHC 34.7 RDW 11.7 Plt Count 107 L MPV 11.0 Absolute Nucleated RBC 0.000 Nucleated RBC % (auto) 0.0 D-Dimer High Sensitivty 306 Sodium 130 L Potassium 3.6 Chloride 100 Carbon Dioxide 24 Anion Gap 10 L BUN 12 Creatinine 0.81 Estim Creat Clear Calc 95.5 Estimated GFR > 60 Random Glucose 161 H Calcium 7.9 L Total Bilirubin AST ALT Alkaline Phosphatase C-Reactive Protein Total Protein Albumin 04/17/21 06:42 WBC RBC Hgb Hct MCV MCH MCHC RDW Plt Count MPV Absolute Nucleated RBC Nucleated RBC % (auto) D-Dimer High Sensitivty Sodium 136 Potassium 4.0 Chloride 105 Carbon Dioxide 22 Anion Gap 13 BUN 14 Creatinine 0.83 Estim Creat Clear Calc 93.2 Estimated GFR > 60 Random Glucose 102 D Calcium 8.0 L Total Bilirubin 1.2 H AST 30 ALT 34 Alkaline Phosphatase 63 C-Reactive Protein 0.85 H Total Protein 5.0 L Albumin 2.6 L Procedures Date of Service Date of Service: 04/17/21 Assessment & Plan Assessment and plan (1) Acute hyponatremia: Status: Acute Assessment and Plan: Hyponatremia with Altered Mental Status on a background of COVID 19 positivity Hyponatremia likely multifactorial. Had been having poor PO intake; H/O being on HCTZ Was given hypertonic saline briefly. Was on Normal saline- Na normalized Sodium correction quite appropriate; Continue current supportive care (correction appropriate? to prevent [place] Myelinolysis) No HCTZ/Losartan for now; If BP goes up start losartan AVOID HCTZ even as outpatient Time Spent With Patient Time: Total time spent is greater than 50% in coordination of care (as do cumented) at patient's floor/unit and/or counseling patient: Progress Note: Quality Stroke Does the patient have a stroke diagnosis?: No
--- NOTE | 2021-04-17 16:02 | PC.NURSE ---
1300- Patient transitioned from High flow to 15L [place]. Patient tolerating well, O2 99% on 15L [place]. 1400- Patient O2 mantaining in high 90s. Patient weaned down to 12L [place], sating 98% 12L [place]. Patient has no complaints at this time.
[2021-04-17] MEDS: Atorvastatin Calcium 40 MG TABLET PO (20:22)
[2021-04-18] MEDS: Heparin Sodium,Porcine 5,000 UNIT/ML VIAL 5000 UNIT SUBCUT ×3 (02:59→17:05)
[2021-04-18 03:39] VITALS: BP 144/89; PULSE 67; RESP 18; TEMP 37.1; O2SAT 98
[2021-04-18 05:59] VITALS: BMI 31.5
[2021-04-18 07:03] VITALS: BP 133/85; PULSE 52; RESP 16; TEMP 37.1; O2SAT 97
[2021-04-18 07:11] LABS: Hematocrit 37.2 % (42.0-52.0); Hemoglobin 12.7 g/dl (14.0-18.0); Mean Corpuscular HGB Conc 34.1 g/dl (31.0-36.0); Mean Corpuscular Hemoglobin 31.1 pg (27.0-33.0); Mean Platelet Volume 10.6 fL (9.4-12.4); Platelet Count 144 X10*3/uL (160-400); Red Blood Count 4.09 X10*6/uL (4.60-5.80); Red Cell Distribution Width 11.9 % (11.0-16.0); White Blood Count 6.7 X10*3/uL (4.8-10.8)
[2021-04-18 07:29] LABS: Alanine Aminotransferase 33 U/L (0-40); Albumin Level 2.7 g/dL (3.5-5.0); Alkaline Phosphatase 64 U/L (39-117); Anion Gap 9 (12-20); Aspartate Amino Transferase 20 U/L (5-37); Bilirubin Total 1.4 mg/dL (0.0-1.0); Blood Urea Nitrogen 17 mg/dL (9-16); Calcium 8.3 mg/dL (8.4-10.2); Carbon Dioxide 22 mmol/L (22-29); Chloride 110 mmol/L (96-108); Creatinine Clr Calc Pharmacy 94.7; Estimated Glomerular Filt Rate > 60; Glucose Random 96 mg/dL (60-115); Potassium 4.4 mmol/L (3.3-5.1); Sodium 137 mmol/L (135-145); Total Protein 5.1 g/dL (6.5-8.0)
[2021-04-18] MEDS: Famotidine/PF 20 MG/2 ML VIAL IVPUSH ×2 (10:29→20:37)
[2021-04-18] MEDS: dexAMETHasone sod phosphate 4 MG/ML VIAL 6 MG IVPUSH (10:29)
[2021-04-18] MEDS: 0.9 % Sodium Chloride Flush 3 ML SYRINGE IVFLUSH ×3 (10:29→20:37)
[2021-04-18] MEDS: KCl 40 mEq in 5% Dex/0.9% Sod 40 MEQ/1,000 ML IV.SOLN 60 MEQ IVCONT (10:48)
[2021-04-18 11:16] VITALS: BP 147/69; PULSE 66; RESP 16; TEMP 37.3; O2SAT 96
--- NOTE | 2021-04-18 12:29 | HO.PM.IMPN ---
Subjective Subjective Date of Service: 04/18/21 Interval History: Weaned from HFNC to NC @ 6 Lpm Denies dyspnea No N/V Review of Systems Review of Systems: Yes all other systems are reviewed and are negative Physical Exam Vital Signs: Vital Signs: Last Vital Signs Temp 99.2 F 04/18/21 11:16 Pulse 66 04/18/21 11:16 Resp 16 04/18/21 11:16 BP 147/69 H 04/18/21 11:16 Pulse Ox 96 04/18/21 11:16 BMI result Body Mass Index 31.5 Gen: in no acute distress HEENT: sclera anicteric, moist mucus membranes Neck: supple Lungs: clear to auscultation bilaterally Heart: regular rate and rhythm, no murmurs Abd: soft, non-tender, non-distended Ext: no edema Skin: warm/well-perfused Neuro: alert and oriented x3, no focal findings Psych: appropriate affect Objective Data Active Medications Atorvastatin Calcium (Atorvastatin Calcium 40 Mg Tablet) 40 mg PO BEDTIME [facility] Last Admin: 04/17/21 20:22 Dose: 40 mg Documented by: VI Baricitinib (Baricitinib 2 Mg Tablet) 4 mg PO Q24H [facility] Stop: 04/28/21 17:01 Last Admin: 04/17/21 16:18 Dose: 4 mg Documented by: VI Dexamethasone Sodium Phosphate (Dexamethasone Sod Phosphate 4 Mg/Ml Vial) 6 mg IVPUSH DAILY [facility] Last Admin: 04/18/21 10:29 Dose: 6 mg Documented by: NICHOL Famotidine (Famotidine/Pf 20 Mg/2 Ml Vial) 20 mg IVPUSH BID [facility] Last Admin: 04/18/21 10:29 Dose: 20 mg Documented by: NICHOL Heparin Sodium (Porcine) (Heparin Sodium,Porcine 5,000 Unit/Ml Vial) 5,000 unit SUBCUT Q8H [facility] Last Admin: 04/18/21 10:29 Dose: 5,000 unit Documented by: NICHOL Potassium Chloride/Dextrose/Sod Cl () 40 meq in 1,000 mls @ 60 mls/hr IVCONT .[id number] [facility] Last Admin: 04/18/21 10:48 Dose: 60 mls/hr Documented by: NICHOL Sodium Chloride (0.9 % Sodium Chloride Flush 3 Ml Syringe) 3 ml IVFLUSH QSHIFT [facility] Last Admin: 04/18/21 10:29 Dose: 3 ml Documented by: NICHOL Labs CBC & Chem 7: 04/18/21 06:43 04/18/21 06:43 Labs: Laboratory Results - last 24 hr 04/18/21 04/18/21 06:43 06:43 MCV 91.0 MCH 31.1 MCHC 34.1 RDW 11.9 Plt Count 144 L D MPV 10.6 Absolute Nucleated RBC 0.000 Nucleated RBC % (auto) 0.0 Anion Gap 9 L Estim Creat Clear Calc 94.7 Estimated GFR > 60 Random Glucose 96 Calcium 8.3 L Total Bilirubin 1.4 H AST 20 ALT 33 Alkaline Phosphatase 64 Total Protein 5.1 L Albumin 2.7 L Assessment and Plan (1) Acute hypoxemic respiratory failure: Status: Acute (2) Acute metabolic encephalopathy: Status: Acute (3) Acute hyponatremia: Status: Acute Assessment and Plan: hospital d#5 66yo unvaccinated M with HTN + hx CVA without residual deficit admitted to ICU with altered mental status due to severe hyponatremia, Na 106 became ypoxic due to Covid-19 pneumonia and was placed on HFNC stepped down to ICU 04/16/21 # Covid-19 pneumonia, severe - d#08/08 of dexamethasone, d#08/12 of baricitinib, trend inflammatory markers, O2 as below # acute hypoxic respiratory failure - wean O2 as tolerated, encouarge awake proning # hypoNa - sodium normalized at appropriate rate; was given hypertonic, then normal saline in the ICU - likely was due to dehydration plus HCTZ use # metabolic encephalopathy - resolved with correction of sodium # HTN - d/c'ed HCTZ - if BP rises, restart losartan # hx CVA - not on ASA or statin due to personal beliefs regarding [employer] though he does take antihypertensives # VTE ppx - UFH # dispo - PT consult Quality Stroke Does the patient have a stroke diagnosis?: No VTE Prior VTE?: No VTE Risk Level:: Medical - low VTE Device Contraindication: N/A - Device Ordered VTE Drug Contraindication: Treatment Not Indicated
[2021-04-18 15:05] VITALS: BP 114/69; PULSE 66; RESP 20; TEMP 36.2; O2SAT 99
--- NOTE | 2021-04-18 17:26 | PC.NURSE ---
MORALES D/C'D AT 1730, 6 HOURS TO VOID BY 23:30
[2021-04-18 19:30] VITALS: PULSE 56; RESP 16; TEMP 37.4; O2SAT 95
[2021-04-18] MEDS: Atorvastatin Calcium 40 MG TABLET PO (20:37)
[2021-04-18 23:36] VITALS: BP 139/78; PULSE 51; RESP 18; TEMP 36.8; O2SAT 97
[2021-04-19] MEDS: Heparin Sodium,Porcine 5,000 UNIT/ML VIAL 5000 UNIT SUBCUT ×2 (01:35→09:02)
[2021-04-19 03:20] VITALS: BP 145/75; PULSE 53; RESP 18; TEMP 36.8; O2SAT 97
[2021-04-19 06:00] VITALS: BMI 31.4
[2021-04-19 07:31] VITALS: BP 135/84; PULSE 50; RESP 18; TEMP 36.6; O2SAT 94
[2021-04-19 08:31] LABS: Hematocrit 38.7 % (42.0-52.0); Mean Corpuscular HGB Conc 33.6 g/dl (31.0-36.0); Mean Corpuscular Hemoglobin 30.6 pg (27.0-33.0); Mean Corpuscular Volume 91.1 fL (80.0-98.0); Mean Platelet Volume 10.5 fL (9.4-12.4); Platelet Count 150 X10*3/uL (160-400); Red Blood Count 4.25 X10*6/uL (4.60-5.80); Red Cell Distribution Width 11.7 % (11.0-16.0); White Blood Count 7.7 X10*3/uL (4.8-10.8)
[2021-04-19 08:43] LABS: Anion Gap 9 (12-20); Blood Urea Nitrogen 13 mg/dL (9-16); C Reactive Protein 0.93 mg/dL (< or = 0.50); Calcium 8.3 mg/dL (8.4-10.2); Carbon Dioxide 24 mmol/L (22-29); Chloride 106 mmol/L (96-108); Creatinine Clr Calc Pharmacy 100.7; Estimated Glomerular Filt Rate > 60; Glucose Random 81 mg/dL (60-115); Potassium 4.2 mmol/L (3.3-5.1); Sodium 135 mmol/L (135-145)
[2021-04-19] MEDS: 0.9 % Sodium Chloride Flush 3 ML SYRINGE IVFLUSH ×3 (09:02→19:59)
[2021-04-19] MEDS: Famotidine/PF 20 MG/2 ML VIAL IVPUSH (09:02)
[2021-04-19] MEDS: dexAMETHasone sod phosphate 4 MG/ML VIAL 6 MG IVPUSH (09:02)
[2021-04-19 09:05] LABS: D Dimer High Sensitivity 636 NG/ML
[2021-04-19 11:48] VITALS: BP 119/75; PULSE 65; RESP 18; TEMP 36.3; O2SAT 98
--- NOTE | 2021-04-19 12:59 | MHC.CM.PN ---
Per ROUNDS discussion, Patient is not yet medically cleared for dc (IV Decadron, IV Pepcid, 5L O2). Home is the goal for dc and CM will follow for possible need to adjust the dc plan.
--- NOTE | 2021-04-19 14:04 | P.PNIM_ITS ---
Subjective Subjective Date of Service: 04/19/21 Interval History: Oxygenation remains stable on nasal cannula 6 L, complaining of no bowel movement since admit, denies nausea vomiting, no abdominal pain. Review of Systems Review of Systems: Yes all other systems are reviewed and are negative Physical Exam Vital Signs: Vital Signs: Last Vital Signs Temp 97.4 F 04/19/21 11:48 Pulse 65 04/19/21 11:48 Resp 18 04/19/21 11:48 BP 119/75 04/19/21 11:48 Pulse Ox 98 04/19/21 11:48 BMI result Body Mass Index 31.4 Gen: Awake alert x3,no acute distress Neck: supple, no JVD Lungs: clear to auscultation bilaterally, no respiratory distress Heart: regular rate and rhythm, no murmurs Abd: soft, non-tender, non-distended, bowel sounds audible Ext: no edema Skin: warm/well-perfused Neuro: alert and oriented x3, no focal findings Psych: appropriate affect ? Objective Data Active Medications Atorvastatin Calcium (Atorvastatin Calcium 40 Mg Tablet) 40 mg PO BEDTIME [facility] Last Admin: 04/18/21 20:37 Dose: 40 mg Documented by: MELE Baricitinib (Baricitinib 2 Mg Tablet) 4 mg PO Q24H [facility] Stop: 04/28/21 17:01 Last Admin: 04/18/21 17:05 Dose: 4 mg Documented by: NICHOL Dexamethasone Sodium Phosphate (Dexamethasone Sod Phosphate 4 Mg/Ml Vial) 6 mg IVPUSH DAILY [facility] Last Admin: 04/19/21 09:02 Dose: 6 mg Documented by: YOANA Famotidine (Famotidine/Pf 20 Mg/2 Ml Vial) 20 mg IVPUSH BID [facility] Last Admin: 04/19/21 09:02 Dose: 20 mg Documented by: YOANA Heparin Sodium (Porcine) (Heparin Sodium,Porcine 5,000 Unit/Ml Vial) 5,000 unit SUBCUT Q8H [facility] Last Admin: 04/19/21 09:02 Dose: 5,000 unit Documented by: YOANA Sodium Chloride (0.9 % Sodium Chloride Flush 3 Ml Syringe) 3 ml IVFLUSH QSHIFT [facility] Last Admin: 04/19/21 09:02 Dose: 3 ml Documented by: HO.NGENOAL Labs CBC & Chem 7: 04/19/21 08:12 04/19/21 08:12 Labs: Laboratory Results - last 24 hr 04/19/21 04/19/21 04/19/21 08:12 08:12 08:12 MCV 91.1 MCH 30.6 MCHC 33.6 RDW 11.7 Plt Count 150 L MPV 10.5 Absolute Nucleated RBC 0.000 Nucleated RBC % (auto) 0.0 D-Dimer High Sensitivty 636 Anion Gap 9 L Estim Creat Clear Calc 100.7 Estimated GFR > 60 Random Glucose 81 Calcium 8.3 L C-Reactive Protein 0.93 H Assessment and Plan (1) Acute hypoxemic respiratory failure: Status: Acute (2) COVID-19 determined by clinical diagnostic criteria: Status: Acute (3) Constipation: Status: Acute Assessment and Plan: 66yo unvaccinated M with HTN + hx CVA without residual deficit admitted to ICU with altered mental status due to severe hyponatremia, Na 106 became ypoxic due to Covid-19 pneumonia and was placed on HFNC stepped down to ICU 04/16/21 # Covid-19 pneumonia, severe - d#09/07 of dexamethasone, d#09/11 of baricitinib, will gradually wean oxygen as tolerated, CRP 0.93, procalcitonin 0.05 , will switch to by mouth Pepcid # acute hypoxic respiratory failure - wean O2 as tolerated, encouarge awake proning, frequent positioning change # constipation will add Colace 200 mg daily and give lactulose x1 dose. # hypoNa - sodium normalized at appropriate rate; was given hypertonic, then normal saline in the ICU - likely was due to dehydration plus HCTZ use # metabolic encephalopathy - resolved with correction of sodium # HTN - d/c'ed HCTZ, BP stable if noted to have elevated blood pressure will restart losartan # hx CVA - not on ASA or statin due to personal beliefs regarding [email or web address] though he does take antihypertensives # VTE ppx - UFH # dispo - seen by PT they recommend short-term rehab Quality Stroke Does the patient have a stroke diagnosis?: No VTE Prior VTE?: No VTE Risk Level:: Medical - low VTE Device Contraindication: N/A - Device Ordered VTE Drug Contraindication: Treatment Not Indicated
[2021-04-19 15:07] VITALS: BP 133/85; PULSE 52; RESP 20; TEMP 35.9; O2SAT 96
[2021-04-19] MEDS: Lactulose 20 GM/30 ML SOLUTION 15 GM PO (15:21)
[2021-04-19 19:42] VITALS: BP 145/89; PULSE 50; RESP 18; TEMP 36.3; O2SAT 93
[2021-04-19] MEDS: Famotidine 20 MG TABLET PO (19:59)
[2021-04-19] MEDS: Atorvastatin Calcium 40 MG TABLET PO (19:59)
[2021-04-19 23:16] VITALS: BP 164/100; PULSE 50; RESP 18; TEMP 36.3; O2SAT 95
[2021-04-20] MEDS: Heparin Sodium,Porcine 5,000 UNIT/ML VIAL 5000 UNIT SUBCUT ×3 (02:34→18:02)
[2021-04-20 03:12] VITALS: BP 158/88; PULSE 50; RESP 18; TEMP 36.5; O2SAT 99
[2021-04-20 05:51] VITALS: BMI 30.2
[2021-04-20 07:43] VITALS: BP 152/95; PULSE 50; TEMP 36.4; O2SAT 96
[2021-04-20] MEDS: Docusate Sodium 100 MG CAPSULE 200 MG PO (08:16)
[2021-04-20] MEDS: Famotidine 20 MG TABLET PO ×2 (08:16→20:06)
[2021-04-20] MEDS: dexAMETHasone sod phosphate 4 MG/ML VIAL 6 MG IVPUSH (08:16)
[2021-04-20] MEDS: 0.9 % Sodium Chloride Flush 3 ML SYRINGE IVFLUSH ×3 (08:19→20:06)
[2021-04-20] MEDS: Mineral OiL enema 133 ML ENEMA PR (08:19)
[2021-04-20 11:54] VITALS: BP 126/78; PULSE 51; RESP 20; TEMP 36.3; O2SAT 100
--- NOTE | 2021-04-20 12:01 | MHC.CM.PN ---
Patient was not reachable by cell nor room Ext. [id number]; CM spoke with /Macey @ [phone]. Macey indicated that she and the Patient have already discussed PT's recommendation for STR and [facility] is first choice. Patient/ are agreeable to SNF referrals ideally in the [place] area, in case [facility] is unable to accept. Referrals have been made and CM will follow.
--- NOTE | 2021-04-20 14:01 | P.PNIM_ITS ---
Subjective Subjective Date of Service: 04/20/21 Interval History: Patient feeling better this morning had a bowel movement after mineral oil enema, denies chest pain, no headache no dizziness no fevers no chills overnight. Review of Systems Review of Systems: Yes all other systems are reviewed and are negative Physical Exam Vital Signs: Vital Signs: Last Vital Signs Temp 97.4 F 04/20/21 11:54 Pulse 51 04/20/21 11:54 Resp 20 04/20/21 11:54 BP 126/78 04/20/21 11:54 Pulse Ox 100 04/20/21 11:54 BMI result Body Mass Index 30.2 Gen:? Awake alert x3,no acute distress Neck: supple, no JVD Lungs: clear to auscultation bilaterally, no respiratory distress Heart: regular rate and rhythm, no murmurs Abd: soft, non-tender, non-distended, bowel sounds audible Ext: no edema Skin: warm/well-perfused Neuro: alert and oriented x3, no focal findings Psych: appropriate affect Objective Data Active Medications Atorvastatin Calcium (Atorvastatin Calcium 40 Mg Tablet) 40 mg PO BEDTIME [facility] Last Admin: 04/19/21 19:59 Dose: 40 mg Documented by: ANTLEROY Baricitinib (Baricitinib 2 Mg Tablet) 4 mg PO Q24H [facility] Stop: 04/28/21 17:01 Last Admin: 04/19/21 15:22 Dose: 4 mg Documented by: YOANA Dexamethasone Sodium Phosphate (Dexamethasone Sod Phosphate 4 Mg/Ml Vial) 6 mg IVPUSH DAILY [facility] Last Admin: 04/20/21 08:16 Dose: 6 mg Documented by: YOANA Docusate Sodium (Docusate Sodium 100 Mg Capsule) 200 mg PO DAILY [facility] Last Admin: 04/20/21 08:16 Dose: 200 mg Documented by: YOANA Famotidine (Famotidine 20 Mg Tablet) 20 mg PO BID [facility] Last Admin: 04/20/21 08:16 Dose: 20 mg Documented by: YOANA Heparin Sodium (Porcine) (Heparin Sodium,Porcine 5,000 Unit/Ml Vial) 5,000 unit SUBCUT Q8H [facility] Last Admin: 04/20/21 08:16 Dose: 5,000 unit Documented by: YOANA Sodium Chloride (0.9 % Sodium Chloride Flush 3 Ml Syringe) 3 ml IVFLUSH QSHIFT [facility] Last Admin: 04/20/21 08:19 Dose: 3 ml Documented by: YOANA Labs CBC & Chem 7: 04/19/21 08:12 04/19/21 08:12 Assessment and Plan (1) Constipation: Status: Acute (2) Acute hypoxemic respiratory failure: Status: Acute (3) Hypertensive arteriosclerotic cardiovascular disease: Status: Acute (4) COVID-19 determined by clinical diagnostic criteria: Status: Acute Assessment and Plan: 66yo unvaccinated M with HTN + hx CVA without residual deficit admitted to ICU with altered mental status due to severe hyponatremia, Na 106 became ypoxic due to Covid-19 pneumonia and was placed on HFNC stepped down to ICU 04/16/21 # acute hypoxic respiratory failure due to severe Covid-19 pneumonia, - d#6/10 of dexamethasone, d#6/14 of baricitinib, by mouth Pepcid now on 2 L of oxygen, CRP 0.93, procalcitonin 0.05 , - wean O2 as tolerated, encouarge awake proning, frequent positioning change Will discharge on by mouth dexamethasone and discontinue baricitinib. # constipation resolved after lactulose and enema ,continue Colace 200 mg daily # hypoNa - sodium normalized at appropriate rate; was given hypertonic, then normal saline in the ICU - likely was due to dehydration plus HCTZ use # metabolic encephalopathy - resolved with correction of sodium # HTN - d/c'ed HCTZ, BP stable if noted to have elevated blood pressure will restart losartan # hx CVA - not on ASA or statin due to personal beliefs regarding [employer] though he does take antihypertensives # VTE ppx - UFH # dispo - seen by PT they recommend rehab Quality Stroke Does the patient have a stroke diagnosis?: No VTE Prior VTE?: No VTE Risk Level:: Medical - low VTE Device Contraindication: N/A - Device Ordered VTE Drug Contraindication: Treatment Not Indicated
[2021-04-20 16:03] VITALS: BP 129/82; PULSE 52; RESP 20; TEMP 36.2; O2SAT 99
[2021-04-20 19:32] VITALS: BP 128/78; PULSE 62; RESP 18; TEMP 36.3; O2SAT 92
[2021-04-20] MEDS: Atorvastatin Calcium 40 MG TABLET PO (20:06)
[2021-04-21] VITALS: BP 131/80; PULSE 51; RESP 18; TEMP 37.1; O2SAT 95
[2021-04-21] MEDS: Heparin Sodium,Porcine 5,000 UNIT/ML VIAL 5000 UNIT SUBCUT ×2 (01:49→08:50)
[2021-04-21 04:00] VITALS: BP 147/89; PULSE 51; RESP 18; TEMP 36.4; O2SAT 96
[2021-04-21 07:07] VITALS: BP 123/76; PULSE 54; RESP 18; TEMP 36.6; O2SAT 93
[2021-04-21] MEDS: Docusate Sodium 100 MG CAPSULE 200 MG PO (08:49)
[2021-04-21] MEDS: Famotidine 20 MG TABLET PO (08:49)
[2021-04-21] MEDS: dexAMETHasone sod phosphate 4 MG/ML VIAL 6 MG IVPUSH (08:50)
[2021-04-21] MEDS: 0.9 % Sodium Chloride Flush 3 ML SYRINGE IVFLUSH (08:51)
--- NOTE | 2021-04-21 10:27 | PM.DS ---
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 (4) COVID-19 determined by clinical diagnostic criteria: Status: Acute DS: Summary Hospital Course Hospital Course: Chief Complaint: Altered mental status 66-year-old hypertensive on hydrochlorothiazide and losartan who had a diagnosis of COVID-19 made 5 days ago but apparently symptomatic for approximately 2 weeks according to his son was briefly admitted but signed out of [facility] and and comes in now because of this altered mental status superimposed on a background of a per and old CVA that did not leave him with any residual and apparently he is a healthy walker 5 miles per day with no residual deficit but the because of altered mental status son brought him in and we noted a sodium of 106 with no apparent or at least witnessed loss of consciousness fall head trauma seizure activity etc. At this point he is approximately 2 weeks out from the initial symptom of of COVID and 5 days out from the positive PCR test and has no complaints of dyspnea cough fever yet at this point. Hospital course 66yo unvaccinated M with HTN + hx CVA without residual deficit admitted to ICU with altered mental status due to severe hyponatremia, Na 106 became ypoxic due to Covid-19 pneumonia and was placed on HFNC stepped down to ICU 04/16/21 # acute hypoxic respiratory failure due to severe Covid-19 pneumonia, patient treated with IV dexamethasone and baricitinib, Pepcid and supportive care, oxygenation significantly improved currently on 2 L of oxygen, procalcitonin 0.05 , patient is now being discharged to acute rehab on 3 more days of dexamethasone and Pepcid for GI prophylaxis. # constipation noted to be constipated therefore placed on Colace and Metamucil # hyponatremia resolved was treated with hypertonic saline in the ICU, hydrochlorothiazide has been discontinued, patient was noted to have metabolic encephalopathy likely related to hyponatremia that has resolved with correction of sodium # in regard to history of hypertension hydrochlorothiazide has been discontinued due to hyponatremia, patient was on losartan 100 mg by mouth daily but noted to have soft blood pressures therefore dose of losartan reduced to 25 mg by mouth daily, recommend to follow blood pressure and up titrate losartan as needed # hx CVA patient not on ASA or statin due to personal beliefs regarding [employer] though he does take antihypertensives. Time Spent with Patient Time attestation: Total time spent providing and/or coordinating discharge services: Discharge coordination time: Greater than 30 minutes Quality: Stroke Does the patient have a stroke diagnosis?: No Physical Exam Vital Signs: Vital Signs: Last Vital Signs Temp 98 F 04/21/21 07:07 Pulse 54 04/21/21 07:07 Resp 18 04/21/21 07:07 BP 123/76 04/21/21 07:07 Pulse Ox 93 04/21/21 07:07 BMI result Body Mass Index 30.2 Gen:? Awake alert x3,no acute distre ss Neck: supple, n o JVD Lungs: clear to auscultation b ilaterally, no res piratory distress Heart: regular rat e and rhythm, no m urmurs Abd: soft, non-tender, non-di stended, bowel hill nds audible Ext: n o edema Skin: warm /well-perfused Tung ro: alert and orie nted x3, no focal findings Psych: ap propriate affect Discharge Plan Discharge Patient Disposition: Xfer Inpatient Rehab Fac Discharge Diagnosis: hyponatremia, Covid-19 pneumonia Referrals: Brinda Mahmood MD [Primary Care Provider] - 1 Week Discharge Medications: New docusate sodium 100 mg Capsule 200 mg PO DAILY Qty: 30 RF: 0 Metamucil Fiber Singles 3.4 gram Powder In Packet 3.4 g PO DAILY Qty: 30 RF: 0 dexamethasone 6 mg tablet 6 mg PO DAILY Qty: 3 RF: 0 losartan 25 mg tablet 25 mg PO DAILY Qty: 30 RF: 0 famotidine [Pepcid] 20 mg tablet 20 mg PO DAILY Qty: 30 RF: 0 Continued atorvastatin 40 mg tablet 40 mg PO DAILY Qty: 30 RF: 0 Discontinued hydrochlorothiazide 25 mg tablet 25 mg PO DAILY Qty: 30 RF: 0 losartan 100 mg tablet 100 mg PO DAILY Qty: 30 RF: 0 Discharge Orders: Discharge Order (Routine); Ordered 04/21/21 Ordered By: Yong Rudd Diet: advance to usual diet Activity on Discharge: As tolerated Stand Alone Forms: Patient Portal Discharge page Care Plan Goals: recovery from Covid-19 Health Concerns: hyponatremia, Covid-19 pneumonia, constipation Plan of Treatment: stop hydrochlorothiazide take steroids [dexamethasone] as prescribed Assessment: see Discharge Summary Patient Instructions: Hyponatremia (DC), COVID-19 (Coronavirus Disease 2019) (DC)
[2021-04-21 11:16] VITALS: BP 127/81; PULSE 54; RESP 18; TEMP 36; O2SAT 93
--- NOTE | 2021-04-21 11:20 | MHC.CM.PN ---
Patient has been medically cleared for dc to Acute Rehab today. Patient will dc to [facility] today at noon, via [facility] (Patient and 's first choice facility). CM left a detailed message to /Macey @ [phone], informing her of the dc details)IMM will be mailed certified letter to Macey and a copy has been placed on the chart.(COVID +).
[2021-04-21 11:32] LABS: COVID-19 Test Positive (Negative); IDNOW Serial# 9DD0AD1C
== END 2021-04-21 13:30 | DRG 177 ==
LOC: HO.ED 16:21 → HO.EDOVER 17:40 → HO.ICU 21:15 → HO.IMC 04-16 16:47
PROVIDERS: Family Medicine; Physician Assistant; Physician Assistant Medical; Admitting Provider Internal Medicine Cardiovascular Disease; Emergency Provider Emergency Medicine; PCP Internal Medicine; Visit Provider Hospitalist
DX: U07.1 COVID-19 (principal); G93.41 Metabolic encephalopathy; J12.82 Pneumonia due to coronavirus disease 2019; J96.01 Acute respiratory failure with hypoxia; E87.1 Hypo-osmolality and hyponatremia; K59.00 Constipation, unspecified; I25.10 Atherosclerotic heart disease of native coronary artery without angina pectoris; R62.7 Adult failure to thrive; Z68.30 Body mass index [BMI] 30.0-30.9, adult; I11.9 Hypertensive heart disease without heart failure; E86.0 Dehydration; Z86.73 Personal history of transient ischemic attack (TIA), and cerebral infarction without residual deficits; Z87.891 Personal history of nicotine dependence; Z79.899 Other long term (current) drug therapy
CPT/HCPCS: 36415; 70450; 71045; 71250; 80048; 80053; 81001; 82248; 82436; 82550; 82728; 82803; 83615; 83735; 83880; 83935; 84100; 84145; 84300; 84443; 84484; 85025; 85027; 85379; 86140; 87633; 87635; 93005; 97110; 97116; 97162; 97166; 97530; 97535; 99285; 99291; J1100; J2765; J7131

== ENCOUNTER 2021-07-02 06:30 | Outpatient (REF) | payer OTHER, SELFPAY ==
[2021-07-02 11:42] LABS: Hematocrit 46.9 % (42.0-52.0); Mean Corpuscular Hemoglobin 31.1 pg (27.0-33.0); Mean Corpuscular Volume 97.3 fL (80.0-98.0); Mean Platelet Volume 11.1 fL (9.4-12.4); Platelet Count 161 X10*3/uL (160-400); Red Blood Count 4.82 X10*6/uL (4.60-5.80); Red Cell Distribution Width 12.2 % (11.0-16.0); White Blood Count 5.1 X10*3/uL (4.8-10.8)
[2021-07-02 11:57] LABS: Alanine Aminotransferase 12 U/L (0-40); Albumin Level 3.7 g/dL (3.5-5.0); Alkaline Phosphatase 72 U/L (39-117); Anion Gap 11 (12-20); Aspartate Amino Transferase 18 U/L (5-37); Bilirubin Total 1.1 mg/dL (0.0-1.0); Blood Urea Nitrogen 9 mg/dL (9-16); Calcium 9.4 mg/dL (8.4-10.2); Carbon Dioxide 27 mmol/L (22-29); Chloride 104 mmol/L (96-108); Cholesterol 194 mg/dL; Estimated Glomerular Filt Rate > 60; Glucose Random 95 mg/dL (60-115); HDL Cholesterol 39 mg/dL; LDL Cholesterol Calculated 122 mg/dl; Potassium 4.3 mmol/L (3.3-5.1); Sodium 138 mmol/L (135-145); Total Protein 6.7 g/dL (6.5-8.0); Triglycerides 165 mg/dL
[2021-07-02 12:20] LABS: TSH reflex Free T4 3.07 uIU/mL (0.32-4.0)
== END 2021-07-02 06:31 | disposition home or self-care (01) ==
LOC: HO.HMGCLDS 06:30
PROVIDERS: Visit Provider Internal Medicine
DX: E78.5 Hyperlipidemia, unspecified (principal); I10 Essential (primary) hypertension
CPT/HCPCS: 36415; 80053; 80061; 84443; 85027

== ENCOUNTER 2021-12-30 06:19 | Outpatient (REF) | payer OTHER, SELFPAY ==
[2021-12-30 06:45] LABS: MANUAL DIFF FLAG NO
[2021-12-30 07:38] LABS: Basophils Percent Auto 0.6 % (0-2); Eosinophils Absolute Auto 0.2 X10*3/uL (0.0-0.4); Eosinophils Percent Auto 3.7 % (0-4); Hematocrit 47.4 % (42.0-52.0); Hemoglobin 15.6 g/dl (14.0-18.0); Imm Gran Abs Auto 0.01 X10*3/uL (0.00-0.03); Imm Gran Pct Auto 0.2 % (0.0-0.4); Lymphocytes Percent Auto 40.2 % (20-40); Mean Corpuscular HGB Conc 32.9 g/dl (31.0-36.0); Mean Corpuscular Volume 94.2 fL (80.0-98.0); Mean Platelet Volume 10.6 fL (9.4-12.4); Monocytes Absolute Auto 0.4 X10*3/uL (0.1-1.2); Monocytes Percent Auto 8.3 % (2-11); Neutrophils Absolute Auto 2.4 x10*3/uL (2.0-8.3); Platelet Count 143 X10*3/uL (160-400); Red Blood Count 5.03 X10*6/uL (4.60-5.80); Red Cell Distribution Width 11.6 % (11.0-16.0); White Blood Count 5.1 X10*3/uL (4.8-10.8)
[2021-12-30 07:51] LABS: Anion Gap 14 (12-20); Blood Urea Nitrogen 10 mg/dL (9-16); Calcium 9.2 mg/dL (8.4-10.2); Carbon Dioxide 26 mmol/L (22-29); Chloride 108 mmol/L (96-108); Cholesterol 222 mg/dL; Estimated Glomerular Filt Rate > 60; HDL Cholesterol 43 mg/dL; Iron 81 mcg/dL (45-160); LDL Cholesterol Calculated 150 mg/dl; Magnesium 2.1 mg/dL (1.6-2.6); Percent Iron Saturation 26 % (15-50); Potassium 4.8 mmol/L (3.3-5.1); Sodium 143 mmol/L (135-145); Total Iron Binding Capacity 317 mcg/dL (228-428); Triglycerides 146 mg/dL; Unsaturated Iron Binding 236 ug/dL
[2021-12-30 08:13] LABS: Ferritin 51 ng/mL (20-250)
== END 2021-12-30 06:20 | disposition home or self-care (01) ==
LOC: HO.LAB 06:19
PROVIDERS: Visit Provider Internal Medicine Nephrology
DX: I10 Essential (primary) hypertension (principal)
CPT/HCPCS: 36415; 80051; 80061; 82310; 82565; 82728; 83540; 83735; 84520; 85025

== ENCOUNTER 2022-02-01 06:56 | Outpatient (REF) | payer OTHER, SELFPAY ==
[2022-02-01 08:24] LABS: Estimated Average Glucose 108 mg/dL; Hemoglobin A1c % 5.4 %
[2022-02-01 08:34] LABS: Erythrocyte Sedimentation Rate 5 MM/HR (0-15)
[2022-02-01 08:38] LABS: Alanine Aminotransferase 17 U/L (0-40); Albumin Level 3.9 g/dL (3.5-5.0); Alkaline Phosphatase 72 U/L (39-117); Anion Gap 17 (12-20); Aspartate Amino Transferase 23 U/L (5-37); Bilirubin Total 1.4 mg/dL (0.0-1.0); Blood Urea Nitrogen 9 mg/dL (9-16); Carbon Dioxide 22 mmol/L (22-29); Chloride 107 mmol/L (96-108); Estimated Glomerular Filt Rate > 60; Glucose Random 100 mg/dL (60-115); Potassium 4.8 mmol/L (3.3-5.1); Sodium 141 mmol/L (135-145); Vitamin D 25-OH Total 68.3 ng/mL (>30)
[2022-02-01 08:43] LABS: Vitamin B12 591 pg/mL (200-900)
[2022-02-01 09:41] LABS: Insulin 7 uU/mL (2-29)
[2022-02-03 14:52] LABS: CRP High Sensitivity 0.6 mg/L
[2022-02-05 23:07] LABS: Methylmalonic Acid 181 nmol/L (87-318)
[2022-02-09 14:11] LABS: Apolipoprotein B 119 mg/dL (<90)
== END 2022-02-01 06:57 | disposition home or self-care (01) ==
LOC: HO.LAB 06:56
PROVIDERS: PCP Internal Medicine; Visit Provider Registered Nurse
DX: R73.01 Impaired fasting glucose (principal); R53.83 Other fatigue; I10 Essential (primary) hypertension; E78.5 Hyperlipidemia, unspecified; E55.9 Vitamin D deficiency, unspecified; D50.8 Other iron deficiency anemias; E80.6 Other disorders of bilirubin metabolism
CPT/HCPCS: 80053; 82172; 82306; 82607; 83036; 83525; 83921; 85652; 86141

== ENCOUNTER 2022-02-11 08:59 | Outpatient (REF) | payer OTHER, SELFPAY ==
[2022-02-11 10:37] LABS: Prostate Specific Antigen 0.38 ng/mL (<0.05-4.0)
== END 2022-02-11 09:00 | disposition home or self-care (01) ==
LOC: HO.LAB 08:59
PROVIDERS: PCP Registered Nurse; Visit Provider Registered Nurse
DX: E78.5 Hyperlipidemia, unspecified (principal); I10 Essential (primary) hypertension; Z12.5 Encounter for screening for malignant neoplasm of prostate
CPT/HCPCS: 36415; 84153